=== PATIENT | male | born 1945 | race Caucasian/White ===

== ENCOUNTER 2017-01-24 14:04 | Inpatient (IN) | payer MEDICARE, OTHER ==
[2017-01-24] VITALS (7 sets, daily range): BP systolic 161–190; BP diastolic 72–83; PULSE 53–64; RESP 15–20; TEMP 98–98.4; O2SAT 98–99
[~2017-01-24] VITALS: Ht 182.9 cm; Wt 64.1 kg
[~2017-01-24 14:04] MED LIST: ARIC10TA PO; CIPR0.3S2 RIGHT EYE; DILA100C PO; KETO1SOL3 EACH EYE; NU-I150C PO; PRED1%O LEFT EYE; PRED1%O RIGHT EYE; [UNRECOGNIZED DRUG - CODE] SC
[2017-01-24 14:47] LABS: AUTOMATED NEUTROPHIL # 10.7 TH/MM3 (1.8-7.7); BASOPHIL % 0.2 % (0.0-2.0); EOSINOPHIL # 0.2 TH/MM3 (0-0.4); EOSINOPHIL % 1.8 % (0.0-4.0); HEMATOCRIT 29.1 % (39.0-51.0); HEMO FLAGS DIFF FINAL; LYMPH % 7.4 % (9.0-44.0); LYMPHOCYTE # 0.9 TH/MM3 (1.0-4.8); MEAN CELL VOLUME 96.1 FL (80.0-100.0); MEAN CORPUSCULAR HEMOGLOBIN 32.7 PG (27.0-34.0); MEAN CORPUSCULAR HGB CONC 34.1 % (32.0-36.0); MONO % 6.6 % (0.0-8.0); PLATELET COUNT 326 TH/MM3 (150-450); RED BLOOD COUNT 3.03 MIL/MM3 (4.50-5.90); RED CELL DISTRIBUTION WIDTH 15.2 % (11.6-17.2); WHITE BLOOD COUNT 12.7 TH/MM3 (4.0-11.0)
[2017-01-24 14:56] LABS: APTT (PATIENT) 33.1 SEC (24.3-30.1); PROTHROMBIN TIME - PATIENT 10.7 SEC (9.8-11.6)
--- NOTE | 2017-01-24 15:10 | RADRPT ---
EXAM DATE/TIME: 01/24/2017 14:56 [facility] COMPARISON: No previous studies available for comparison. INDICATIONS : Left foot pain, no trauma. MEDICAL HISTORY : Hypertension. Smoker. SURGICAL HISTORY : None. ENCOUNTER: Initial ACUITY: 2 days PAIN SCORE: 10/10 LOCATION: Left foot. FINDINGS: There is diffuse osteopenia. No evidence of fracture, dislocation or bony destruction. Mild arthritic change in the interphalangeal joints and first MTP joint. Small plantar heel spur noted. CONCLUSION: No acute bony findings Eric Lopez MD on January 24, 2017 at 15:07 Board Certified Radiologist. This report was verified electronically.
[2017-01-24 15:21] LABS: ALT (GPT) 26 U/L (12-78); ANION GAP 10 MEQ/L (5-15); AST (GOT) 27 U/L (15-37); BICARBONATE 23.7 MEQ/L (21.0-32.0); BLOOD UREA NITROGEN 46 MG/DL (7-18); CHLORIDE 108 MEQ/L (98-107); GLOMERULAR FILTRATION RATE 23 ML/MIN (>89); POTASSIUM 3.9 MEQ/L (3.5-5.1); SODIUM (NA) 142 MEQ/L (136-145)
[2017-01-24 15:23] LABS: ALKALINE PHOSPHATASE 212 U/L (45-117); TOTAL BILIRUBIN ADULT 0.3 MG/DL (0.2-1.0)
--- NOTE | 2017-01-24 15:40 | RADRPT ---
EXAM DATE/TIME: 01/24/2017 14:52 [facility] COMPARISON: CHEST SINGLE AP, June 05, 2013, 14:22. INDICATIONS : Cough. MEDICAL HISTORY : Hypertension. Smoker. SURGICAL HISTORY : None. ENCOUNTER: Initial ACUITY: 1 day PAIN SCORE: 0/10 LOCATION: Bilateral chest FINDINGS: A single view of the chest demonstrates the lungs to be symmetrically aerated without evidence of mas s, infiltrate or effusion. The cardiomediastinal contours are unremarkable. Osseous structures are intact. CONCLUSION: No acute disease. Eric Lopez MD on January 24, 2017 at 15:38 Board Certified Radiologist. This report was verified electronically.
[2017-01-24] MEDS ORDERED: [UNRECOGNIZED DRUG - CODE] SQ (16:41)
[2017-01-24] MEDS ORDERED: ASPI325T PO (16:45)
[2017-01-24] MEDS ORDERED: POLY0.052 EACH EYE (16:45)
[2017-01-24] MEDS ORDERED: DONE10TA7 PO (16:45)
[2017-01-24] MEDS ORDERED: FLUT1INH INH (16:45)
[2017-01-24] MEDS ORDERED: DILA100C PO (16:57)
[2017-01-24] MEDS ORDERED: ROCA0.5C PO (16:57)
[2017-01-24] MEDS ORDERED: FLUT1SPR5 EACH NARE (16:57)
[2017-01-24] MEDS ORDERED: LORA10TA PO (16:57)
[2017-01-24] MEDS ORDERED: NU-IRON PO (16:57)
[2017-01-24] MEDS ORDERED: VENTAER INH (16:57)
[2017-01-24] MEDS ORDERED: LABE100T2 PO (16:57)
[2017-01-24] MEDS ORDERED: SODI650T PO (16:57)
[2017-01-24] MEDS ORDERED: MAPA325T PO (16:57)
[2017-01-24] MEDS ORDERED: THERTAB17 PO (16:57)
[2017-01-24] MEDS ORDERED: AMLO10 PO (16:57)
--- NOTE | 2017-01-24 17:08 | PD ---
HPI Chief Complaint: Skin Problem Time Seen by Provider: 14:16 Travel History International Travel<30 days: No Contact w/Intl Traveler<30days: No Traveled to known affect area: No History of Present Illness HPI This is a 71-year-old male with a history of peripheral vascular disease, COPD, previous alcoholism, seizure disorder, who [facility] with evidence of an ischemic left foot. The patient's had previous BKA of the right lower extremity. He's also had a aorta femoral graft of the left lower extremity. He reports that 2 weeks ago he started experiencing pain in his left foot. He states that at that time they did ordered a Doppler of his left lower extremity. He states it wasn't done for 3 days because of the holiday. He reports that the foot has progressively gotten more red and now there are black toes including his great toe and second toe. There is no reported fevers , chills. There are no other complaints at time of my examination. PFSH Past Medical History Arthritis: Yes (FINGERS) Asthma: No Atrial Fibrillation: Yes Autoimmune Disease: No Blood Disorders: No Heart Rhythm Problems: No Cancer: No Cardiovascular Problems: Yes (ATR. FIB, PVD) High Cholesterol: No Chemotherapy: No Chest Pain: No Congestive Heart Failure: No COPD: Yes Cerebrovascular Accident: Yes Diabetes: No Diminished Hearing: No Endocrine: No Gastrointestinal Disorders: Yes (GERD, HX ESOPHAGITIS) GERD: No Genitourinary: No Headaches: No Hepatitis: No Hiatal Hernia: No Hypertension: Yes Immune Disorder: No Kidney Stones: No Medical other: Yes (HX DRUG/ ETOH ABUSE, HYPERCALCEMIA, ANEMIA) Musculoskeletal: Yes (GENERALIZED WEAKNES, ARTHRITIS, BK AMP) Neurologic: Yes (TIA'S, SEIZURES ) Psychiatric: Yes (SENILE DEMENTIA, PSYCHOSIS, DEPRESSION) Reproductive: No Respiratory: Yes (COPD) Myocardial Infarction: No Radiation Therapy: No Renal Failure: Yes Seizures: Yes Sickle Cell Disease: No Sleep Apnea: No Thyroid Disease: No Ulcer: No Past Surgical History Abdominal Surgery: No AICD: No Cardiac Surgery: No Ear Surgery: No Endocrine Surgery: No Eye Surgery: No Genitourinary Surgery: No Gynecologic Surgery: No Joint Replacement: No Neurologic Surgery: Yes Oral Surgery: No Pacemaker: No Thoracic Surgery: No Other Surgery: Yes (L FEM/POP) Social History Alcohol Use: No (QUIT 42 YEARS AGO) Tobacco Use: Yes (STATES 1PPD) Substance Use: Yes (HX OF ETOH/ DRUG ABUSE) Allergies-Medications (Allergen,Severity, Reaction): Coded Allergies: *MDRO Multi-Drug Resistant Organism (Verified Allergy, Unknown, 01/24/17) Acinetobacter baumannii MDR Reported Meds & Prescriptions Reported Meds & Active Scripts Active Reported Ventolin Hfa 18 GM Inh (Albuterol Sulfate) 90 Mcg/Act Aer 2 Puff INH Q8HR PRN Mapap (Acetaminophen) 325 Mg Tab 650 Mg PO Q4HR PRN Sodium Bicarbonate 650 Mg Tab 650 Mg PO BID Rocaltrol (Calcitriol) 0.5 Mcg Cap 0.5 Mcg PO DAILY Poly-Iron 150 (Polysaccharide Iron Complex) 150 Mg Cap 150 Mg PO TID Norvasc (Amlodipine Besylate) 10 Mg Tab 10 Mg PO DAILY Thera-M (Multiple Vitamins W/ Minerals) 1 Tab 1 Tab PO DAILY Labetalol (Labetalol HCl) 100 Mg Tab 50 Mg PO BID Flonase Nasal [place] (Fluticasone Nasal [place]) 50 Mcg/Act [place] 2 [place] EACH NARE DAILY Dilantin (Phenytoin Extended) 100 Mg Cap 200 Mg PO BID Loratadine 10 Mg Tab 10 Mg PO DAILY Breo Ellipta Inh (Fluticasone/Vilanterol) 100-25 Mcg/Act Inh 2 Puff INH DAILY Use daily at the same time. Aspirin 325 Mg Tab 325 Mg PO DAILY Polyvinyl Alcohol Opth (Polyvinyl Alcohol) 1.4% Soln 1 Drop EACH EYE DAILY PRN Donepezil 10 Mg Tab 10 Mg PO HS Aranesp (Albumin Free) Inj (Darbepoetin Gelacio Inj) 60 Mcg/0.3 Ml Inj 30 Mcg SQ MONTHLY ON THE Review of Systems Except as stated in HPI: all other systems reviewed are Neg General / Constitutional: No: Fever HENT: No: Headaches, Lightheadedness, Neck Pain Cardiovascular: No: Chest Pain or Discomfort Respiratory: Positive: Cough (nonproductive), Wheezing (chronic), No: Shortness of Breath Gastrointestinal: Positive: Nausea, Vomiting, Abdominal Pain Musculoskeletal: Positive: Myalgias, Arthralgias, Edema (left foot), Pain ( left foot pain, redness and scaling.) Skin: Positive Lesions (of left foot including blackening of the left great toe and second toe.) Neurologic: No: Weakness, Dizziness, Headache, Change in Mentation Endocrine: No: Polyuria, Polydipsia Physical Exam Narrative GENERAL: Well-developed well-nourished gentleman in no acute respiratory distress. SKIN: Focused skin assessment warm/dry. HEAD: Atraumatic. Normocephalic. EYES: No scleral icterus. No injection or drainage. ENT: Mucous membranes pink and moist. NECK: Trachea midline. No JVD. Supple. CARDIOVASCULAR: Regular rate and rhythm. No murmur appreciated. RESPIRATORY: No accessory muscle use. Fine wheezing heard at the bilateral bases. No Rales appreciated. GASTROINTESTINAL: Abdomen soft, non-tender, nondistended. MUSCULOSKELETAL: Previous right BKA. Left lower extremity shows erythema and blistering of his left foot. There is gangrenous black coloration to his left great toe and left second toe. There are no palpable dorsalis pedis pulses. There are no palpable or dopplerable dorsalis pedis or posterior tibial pulses. NEUROLOGICAL: Awake and alert. No obvious cranial nerve deficits. Normal speech. Data Data Last Documented VS Vital Signs Date Time Temp Pulse Resp B/P Pulse Ox O2 Delivery O2 Flow Rate FiO2 01/24/17 18:25 53 16 182/77 99 Room Air 01/24/17 14:32 98.4 Orders Complete Blood Count With Diff (01/24/17 14:32) Comprehensive Metabolic Panel (01/24/17 14:32) Prothrombin Time / Inr (Pt) (01/24/17 14:32) Act Partial Throm Time (Ptt) (01/24/17 14:32) Blood Culture (01/24/17 14:32) Urinalysis - C+S If Indicated (01/24/17 14:32) Chest, Single Ap (01/24/17 14:32) Iv Access Insert/Monitor (01/24/17 14:32) Ecg Monitoring (01/24/17 14:32) Oximetry (01/24/17 14:32) Foot, Limited (2vws) (01/24/17 14:32) Diet Heart Healthy (01/24/17 Dinner) Vital Signs (Adult) JAKE.Q4H (01/24/17 17:27) Consult Vascular Surgery (01/24/17 ) Amlodipine (Norvasc) (01/25/17 09:00) Donepezil (Aricept) (01/24/17 21:00) Fluticason-Vilanter 100-25 Inh (Breo Ell (01/25/17 09:00) Labetalol (Trandate) (01/24/17 21:00) Loratadine (Claritin) (01/25/17 09:00) Multivitamins-Minerals Therap (Theragran (01/25/17 09:00) Phenytoin (Dilantin) (01/24/17 21:00) Polysaccharide Iron Complex (Nu-Iron) (01/24/17 18:00) Artificial Tears Opth Soln (Tears Natura (01/24/17 17:30) Sodium Bicarbonate (Sodium Bicarbonate) (01/24/17 21:00) Calcitriol (Rocaltrol) (01/25/17 09:00) Pill Splitter (Pill Splitter) (01/24/17 17:45) Albuterol Hfa Inh (Ventolin Hfa Inh) (01/24/17 17:45) Acetaminophen (Tylenol) (01/24/17 17:30) Acetamin-Hydrocod 325-5 Mg ([place] 5-325 (01/24/17 17:30) Ondansetron Inj (Zofran Inj) (01/24/17 17:30) (Hub Use Only)Inp Phy Cons/Ref (01/24/17 ) Admit Order (Ed Use Only) (01/24/17 18:24) Labs Laboratory Tests Test 01/24/17 14:35 White Blood Count 12.7 TH/MM3 Red Blood Count 3.03 MIL/MM3 Hemoglobin 9.9 GM/DL Hematocrit 29.1 % Mean Corpuscular Volume 96.1 FL Mean Corpuscular Hemoglobin 32.7 PG Mean Corpuscular Hemoglobin 34.1 % Concent Red Cell Distribution Width 15.2 % Platelet Count 326 TH/MM3 Mean Platelet Volume 7.6 FL Neutrophils (%) (Auto) 84.0 % Lymphocytes (%) (Auto) 7.4 % Monocytes (%) (Auto) 6.6 % Eosinophils (%) (Auto) 1.8 % Basophils (%) (Auto) 0.2 % Neutrophils # (Auto) 10.7 TH/MM3 Lymphocytes # (Auto) 0.9 TH/MM3 Monocytes # (Auto) 0.8 TH/MM3 Eosinophils # (Auto) 0.2 TH/MM3 Basophils # (Auto) 0.0 TH/MM3 CBC Comment DIFF FINAL Differential Comment Prothrombin Time 10.7 SEC Prothromb Time International 1.0 RATIO Ratio Activated Partial 33.1 SEC Thromboplast Time Sodium Level 142 MEQ/L Potassium Level 3.9 MEQ/L Chloride Level 108 MEQ/L Carbon Dioxide Level 23.7 MEQ/L Anion Gap 10 MEQ/L Blood Urea Nitrogen 46 MG/DL Creatinine 2.71 MG/DL Estimat Glomerular Filtration 23 ML/MIN Rate Random Glucose 131 MG/DL Calcium Level 9.5 MG/DL Total Bilirubin 0.3 MG/DL Aspartate Amino Transf 27 U/L (AST/SGOT) Alanine Aminotransferase 26 U/L (ALT/SGPT) Alkaline Phosphatase 212 U/L Total Protein 7.8 GM/DL Albumin 2.6 GM/DL [facility] Medical Decision Making Medical Screen Exam Complete: Yes Emergency Medical Condition: Yes Differential Diagnosis Severe peripheral rash or disease with gangrenous left foot. Versus osteomyelitis versus cellulitis Narrative Course 71-year-old gentleman with history of peripheral vascular disease, COPD, tobacco abuse, who presents with left lower extremity ischemic foot. The patient has had several weeks of chronic ischemia of the left lower extremity. He is guarding had previous aortofemoral bypass of the left lower extremity. The patient be admitted to the [facility] hospitalist service. They'll be a vascular consult. He currently has elevated BUN/creatinine and therefore is not a candidate for a CT angiogram with runoff. Diagnosis Primary Impression: Gangrene of left foot Additional Impressions: Peripheral vascular disease of extremity COPD (chronic obstructive pulmonary disease) Tobacco abuse Admitting Information Admitting Physician Requests: Admit Stoney Bourgeois MD January 24, 2017 17:08
[2017-01-24] MEDS ORDERED: ACETAMINOPHEN/HYDROcodone 325 MG/5 MG TAB PO PRN (17:30)
[2017-01-24] MEDS ORDERED: ACETAMINOPHEN 325 MG TAB PO PRN (17:30)
[2017-01-24] MEDS ORDERED: ONDANSETRON HCL 4 MG/2 ML VIAL IV PUSH PRN (17:30)
[2017-01-24] MEDS ORDERED: ARTIFICIAL TEARS OPTH SOLN 15 ML BTL EACH EYE PRN (17:30)
--- NOTE | 2017-01-24 17:41 | HHI.HP ---
[facility] Wilber Lemus MD Admission Diagnosis gangrene left foot Diagnoses: (1) Gangrene of left foot Diagnosis: Principal Chief Complaint: gangrene of the left foot Travel History International Travel<30 Days: No Contact w/Intl Traveler <30 Da: No Traveled to Known Affected Are: No History of Present Illness patient is a 71 y/o male with history of PVD- s/p right BKA and left femoropopliteal bypass, chronic renal insufficiency, COPD, seizure disorder , who was [facility] ER [facility] because of the gangrene of the left foot. he says that it's been going on for a month. the left foot is with some erythema with black discoloration of the left great toe. he says that he had mild to moderate pain to the site. there's no report of fever. Review of Systems Constitutional: DENIES: Fever, Weight loss, Chills, Night Sweats Eyes: DENIES: Blurred vision, Diplopia, Vision loss, Double Vision Ears, nose, mouth, throat: DENIES: Tinnitus, Vertigo, Throat pain, Epistaxis Respiratory: DENIES: Apneas, Cough, Snoring, Wheezing, Hemoptysis, Sputum production, Shortness of breath Cardiovascular: DENIES: Chest pain, Palpitations, Syncope, Dyspnea on Exertion , PND, Lower Extremity Edema, Orthopnea, Claudication Gastrointestinal: DENIES: Abdominal pain, Black stools, Bloody stools, Constipation, Diarrhea, Nausea, Vomiting, Difficulty Swallowing, Anorexia Genitourinary: DENIES: Urinary frequency, Urgency, Hematuria, Dysuria Musculoskeletal: COMPLAINS OF: Joint pain (left foot), DENIES: Muscle aches, Stiffness, Joint Swelling Integumentary: DENIES: Rash Neurologic: DENIES: Abnormal gait, Headache, Localized weakness, Paresthesias, Seizures, Speech Problems, Tremor, Poor Balance Psychiatric: DENIES: Anxiety, Confusion, Mood changes, Depression, Hallucinations, Agitation, Suicidal Ideation, Homicidal Ideation, Delusions Past Family Social History Past Medical History PVD COPD chronic renal insufficiency seizure disorder Past Surgical History right BKA left femoropopliteal bypass Reported Medications Ventolin Hfa 18 GM Inh (Albuterol Sulfate) 90 Mcg/Act Aer 2 Puff INH Q8HR PRN Mapap (Acetaminophen) 325 Mg Tab 650 Mg PO Q4HR PRN Sodium Bicarbonate 650 Mg Tab 650 Mg PO BID Rocaltrol (Calcitriol) 0.5 Mcg Cap 0.5 Mcg PO DAILY Poly-Iron 150 (Polysaccharide Iron Complex) 150 Mg Cap 150 Mg PO TID Norvasc (Amlodipine Besylate) 10 Mg Tab 10 Mg PO DAILY Thera-M (Multiple Vitamins W/ Minerals) 1 Tab 1 Tab PO DAILY Labetalol (Labetalol HCl) 100 Mg Tab 50 Mg PO BID Flonase Nasal [place] (Fluticasone Nasal [place]) 50 Mcg/Act [place] 2 [place] EACH NARE DAILY Dilantin (Phenytoin Extended) 100 Mg Cap 200 Mg PO BID Loratadine 10 Mg Tab 10 Mg PO DAILY Breo Ellipta Inh (Fluticasone/Vilanterol) 100-25 Mcg/Act Inh 2 Puff INH DAILY Use daily at the same time. Aspirin 325 Mg Tab 325 Mg PO DAILY Polyvinyl Alcohol Opth (Polyvinyl Alcohol) 1.4% Soln 1 Drop EACH EYE DAILY PRN Donepezil 10 Mg Tab 10 Mg PO HS Aranesp (Albumin Free) Inj (Darbepoetin Gelacio Inj) 60 Mcg/0.3 Ml Inj 30 Mcg SQ MONTHLY ON THE Allergies: Coded Allergies: *MDRO Multi-Drug Resistant Organism (Verified Allergy, Unknown, 01/24/17) Acinetobacter baumannii MDR Social History smokes a pack in two days.prison resident. Physical Exam Vital Signs Vital Signs Date Time Temp Pulse Resp B/P Pulse Ox O2 Delivery O2 Flow Rate FiO2 01/24/17 14:40 64 15 98 Room Air 01/24/17 14:40 64 01/24/17 14:32 98.4 62 16 187/82 98 Physical Exam GENERAL: This is a well-nourished, well-developed patient, in no apparent distress. SKIN: erythema over the left foot with gangrene of the left great toe HEAD: Atraumatic. Normocephalic. No temporal or scalp tenderness. EYES: Pupils equal round and reactive. Extraocular motions intact. No scleral icterus. No injection or drainage. ENT: Nose without bleeding, purulent drainage or septal hematoma. Throat without erythema, tonsillar hypertrophy or exudate. Uvula midline. Airway patent. NECK: Trachea midline. No JVD or lymphadenopathy. Supple, nontender, no meningeal signs. CARDIOVASCULAR: Regular rate and rhythm without murmurs, gallops, or rubs. RESPIRATORY: Clear to auscultation. Breath sounds equal bilaterally. No wheezes , rales, or rhonchi. GASTROINTESTINAL: Abdomen soft, non-tender, nondistended. No hepato-splenomegaly , or palpable masses. No guarding. MUSCULOSKELETAL: s/p right BKA NEUROLOGICAL: Awake and alert. Cranial nerves II through XII intact. Motor and sensory grossly within normal limits. Five out of 5 muscle strength in all muscle groups. Normal speech. Laboratory Laboratory Tests Test 01/24/17 14:35 White Blood Count 12.7 Red Blood Count 3.03 Hemoglobin 9.9 Hematocrit 29.1 Mean Corpuscular Volume 96.1 Mean Corpuscular Hemoglobin 32.7 Mean Corpuscular Hemoglobin 34.1 Concent Red Cell Distribution Width 15.2 Platelet Count 326 Mean Platelet Volume 7.6 Neutrophils (%) (Auto) 84.0 Lymphocytes (%) (Auto) 7.4 Monocytes (%) (Auto) 6.6 Eosinophils (%) (Auto) 1.8 Basophils (%) (Auto) 0.2 Neutrophils # (Auto) 10.7 Lymphocytes # (Auto) 0.9 Monocytes # (Auto) 0.8 Eosinophils # (Auto) 0.2 Basophils # (Auto) 0.0 CBC Comment DIFF FINAL Differential Comment Prothrombin Time 10.7 Prothromb Time International 1.0 Ratio Activated Partial 33.1 Thromboplast Time Sodium Level 142 Potassium Level 3.9 Chloride Level 108 Carbon Dioxide Level 23.7 Anion Gap 10 Blood Urea Nitrogen 46 Creatinine 2.71 Estimat Glomerular Filtration 23 Rate Random Glucose 131 Calcium Level 9.5 Total Bilirubin 0.3 Aspartate Amino Transf 27 (AST/SGOT) Alanine Aminotransferase 26 (ALT/SGPT) Alkaline Phosphatase 212 Total Protein 7.8 Albumin 2.6 Date/Time Procedure Status Source Growth 01/24/17 14:35 Aerobic Blood Culture Received Blood Peripheral Pending 01/24/17 14:35 Anaerobic Blood Culture Received Blood Peripheral Pending Result Diagram: 01/24/17 1435 01/24/17 1435 Imaging Last Impressions Foot X-Ray 5/5/17 1432 Signed Impressions: Service Date/Time: Tuesday, January 24, 2017 14:56 - CONCLUSION: No acute bony findings Eric Lopez MD Chest X-Ray 01/24/17 1432 Signed Impressions: Service Date/Time: Tuesday, January 24, 2017 14:52 - CONCLUSION: No acute disease. Eric Lopez MD Assessment and Plan Assessment and Plan A/P - gangrene of the left foot will consult vascular surgery- continue pain control -chronic renal insufficiency; st his baseline- will monitor the renal function -COPD with no exacerbation/ seizure disorder; resume home meds -anemia- due to chronic disease- will monitor Discussed Condition With ER physician and the patient. Physician Certification 2 Midnight Certification Type: Admission for Inpatient Services Order for Inpatient Services The services are ordered in accordance with Medicare regulations or non- Medicare payer requirements, as applicable. In the case of services not specified as inpatient-only, they are appropriately provided as inpatient services in accordance with the 2-midnight benchmark. Estimated LOS (days): 3 days is the estimated time the patient will need to remain in the hospital, assuming treatment plan goals are met and no additional complications. Post-Hospital Plan: Not yet determined Karen Mahan MD January 24, 2017 17:41
[2017-01-24] MEDS ORDERED: PILL SPLITTER OTHER PRN (17:45)
[2017-01-24] MEDS ORDERED: ALBUTEROL SULFATE 90 MCG/ACT HFA 18 GM INHALER INH PRN (17:45)
[2017-01-24] MEDS: POLYSACCHARIDE IRON COMPLEX 150 MG CAP PO SCH (18:45)
[2017-01-24] MEDS: cloNIDine HCL 0.1 MG TAB PO PRN (18:45)
[2017-01-24 19:26] LABS: BACTERIA, URINE MANY /hpf; BLOOD, URINE SMALL (NEG); COMMENT (UR) CULTURE INDICATED; CULTURE IF INDICATED CULTURE INDICATED; GLUCOSE,URINE NEG (NEG); GRANULAR CAST, URINE 5 /lpf; KETONE, URINE NEG (NEG); MUCUS URINE FEW /lpf (OCC); NITRITE,URINE NEG (NEG); PH, URINE 5.5 (5.0-8.5); SQUAMOUS EPITHELIAL CELL URINE 1 /hpf (0-5); URINE COLOR YELLOW (YELLW/STRAW)
[2017-01-24] MEDS: LABETALOL HCL 100 MG TAB PO SCH (21:00)
[2017-01-24] MEDS: DONEPEZIL HCL 5 MG TAB PO SCH (22:15)
[2017-01-24] MEDS: PHENYTOIN SODIUM 100 MG CAP PO SCH (22:15)
[2017-01-24] MEDS: SODIUM BICARBONATE 650 MG TAB PO SCH (22:15)
[2017-01-25] VITALS (7 sets, daily range): BP systolic 150–195; BP diastolic 62–91; PULSE 53–73; RESP 16–20; TEMP 97.6–98.9; O2SAT 96–98
[2017-01-25] MEDS: SODIUM BICARBONATE 650 MG TAB PO SCH ×2 (08:03→20:11)
[2017-01-25] MEDS: CALCITRIOL 0.25 MCG CAP PO SCH (08:03)
[2017-01-25] MEDS: MULTIVITAMINS/MINERALS THERAPEUTIC TAB PO SCH (08:03)
[2017-01-25] MEDS: LORATADINE 10 MG TAB PO SCH (08:03)
[2017-01-25] MEDS: LABETALOL HCL 100 MG TAB PO SCH ×2 (08:03→20:11)
[2017-01-25] MEDS: POLYSACCHARIDE IRON COMPLEX 150 MG CAP PO SCH ×3 (08:03→17:31)
[2017-01-25] MEDS: FLUTICASONE 100 MCG/VILANTEROL 25 MCG INHALER INH SCH (08:05)
[2017-01-25] MEDS: PHENYTOIN SODIUM 100 MG CAP PO SCH ×2 (09:12→20:11)
--- NOTE | 2017-01-25 11:23 | PD.VS.PN ---
Subjective Subjective/Hospital Course Introduced myself to patient and patient noted that he wanted to see Dr. Espinosa. Known hx of vascular procedures per the patient. Please cancel consult and place consult for Dr. Espinosa. Objective Vitals/I&O Date Time Temp Pulse Resp B/P Pulse Ox O2 Delivery O2 Flow Rate FiO2 01/25/17 08:13 63 01/25/17 08:13 Room Air 01/25/17 08:00 98.5 63 20 155/70 98 01/25/17 04:04 Room Air 01/25/17 04:00 98.9 53 18 150/62 96 01/25/17 00:00 Room Air 01/25/17 00:00 98.6 57 18 170/68 98 01/24/17 21:31 170/72 01/24/17 21:15 63 01/24/17 20:45 98.0 55 20 190/83 99 01/24/17 19:11 63 17 01/24/17 19:09 56 17 161/72 99 Room Air 01/24/17 18:25 53 16 182/77 99 Room Air 01/24/17 14:40 64 15 98 Room Air 01/24/17 14:40 64 01/24/17 14:32 98.4 62 16 187/82 98 Laboratory Laboratory Tests Test 01/24/17 01/24/17 14:35 18:45 White Blood Count 12.7 Red Blood Count 3.03 Hemoglobin 9.9 Hematocrit 29.1 Mean Corpuscular Volume 96.1 Mean Corpuscular Hemoglobin 32.7 Mean Corpuscular Hemoglobin 34.1 Concent Red Cell Distribution Width 15.2 Platelet Count 326 Mean Platelet Volume 7.6 Neutrophils (%) (Auto) 84.0 Lymphocytes (%) (Auto) 7.4 Monocytes (%) (Auto) 6.6 Eosinophils (%) (Auto) 1.8 Basophils (%) (Auto) 0.2 Neutrophils # (Auto) 10.7 Lymphocytes # (Auto) 0.9 Monocytes # (Auto) 0.8 Eosinophils # (Auto) 0.2 Basophils # (Auto) 0.0 CBC Comment DIFF FINAL Differential Comment Prothrombin Time 10.7 Prothromb Time International 1.0 Ratio Activated Partial 33.1 Thromboplast Time Sodium Level 142 Potassium Level 3.9 Chloride Level 108 Carbon Dioxide Level 23.7 Anion Gap 10 Blood Urea Nitrogen 46 Creatinine 2.71 Estimat Glomerular Filtration 23 Rate Random Glucose 131 Calcium Level 9.5 Total Bilirubin 0.3 Aspartate Amino Transf 27 (AST/SGOT) Alanine Aminotransferase 26 (ALT/SGPT) Alkaline Phosphatase 212 Total Protein 7.8 Albumin 2.6 Urine Color YELLOW Urine Turbidity HAZY Urine pH 5.5 Urine Specific [place] 1.016 Urine Protein 100 Urine Glucose (UA) NEG Urine Ketones NEG Urine Occult Blood SMALL Urine Nitrite NEG Urine Bilirubin NEG Urine Urobilinogen LESS THAN 2.0 Urine Leukocyte Esterase MOD Urine WBC 4 Urine Squamous Epithelial 1 Cells Urine Amorphous Sediment RARE Urine Bacteria MANY Urine Granular Casts 5 Urine Mucus FEW Microscopic Urinalysis Comment CULTURE INDICATED Date/Time Procedure Status Source Growth 01/24/17 18:45 Urine Culture Received Urine Clean Catch Pending 01/24/17 14:35 Aerobic Blood Culture - Preliminary Resulted Blood Peripheral NO GROWTH IN 1 DAY 01/24/17 14:35 Anaerobic Blood Culture - Preliminary Resulted Blood Peripheral NO GROWTH IN 1 DAY Imaging Last 48 hours Impressions Foot X-Ray 01/24/17 1432 Signed Impressions: Service Date/Time: Tuesday, January 24, 2017 14:56 - CONCLUSION: No acute bony findings Eric Lopez MD Chest X-Ray 01/24/17 1432 Signed Impressions: Service Date/Time: Tuesday, January 24, 2017 14:52 - CONCLUSION: No acute disease. MD Lindsey Barajas Ryan V. DO January 25, 2017 11:23
--- NOTE | 2017-01-25 11:37 | HHI.PR ---
Subjective Remarks in no acute distress. pain is fairly controlled. d/w the RN. Objective Vitals Vital Signs Date Time Temp Pulse Resp B/P Pulse Ox O2 Delivery O2 Flow Rate FiO2 01/25/17 08:13 63 01/25/17 08:13 Room Air 01/25/17 08:00 98.5 63 20 155/70 98 01/25/17 04:04 Room Air 01/25/17 04:00 98.9 53 18 150/62 96 01/25/17 00:00 Room Air 01/25/17 00:00 98.6 57 18 170/68 98 01/24/17 21:31 170/72 01/24/17 21:15 63 01/24/17 20:45 98.0 55 20 190/83 99 01/24/17 19:11 63 17 01/24/17 19:09 56 17 161/72 99 Room Air 01/24/17 18:25 53 16 182/77 99 Room Air 01/24/17 14:40 64 15 98 Room Air 01/24/17 14:40 64 01/24/17 14:32 98.4 62 16 187/82 98 I/O 01/24/17 01/24/17 01/24/17 01/25/17 01/25/17 01/25/17 07:00 15:00 23:00 07:00 15:00 23:00 Intake Total 480 ml Output Total 300 ml Balance 180 ml Intake Oral 480 ml Output Urine Total 300 ml # Bowel Movements 0 Result Diagram: 01/24/17 1435 01/24/17 1435 Imaging Last Impressions Foot X-Ray 01/24/17 1432 Signed Impressions: Service Date/Time: Tuesday, January 24, 2017 14:56 - CONCLUSION: No acute bony findings Eric Lopez MD Chest X-Ray 01/24/17 1432 Signed Impressions: Service Date/Time: Tuesday, January 24, 2017 14:52 - CONCLUSION: No acute disease. Eric Lopez MD Objective Remarks GENERAL: This is a well-nourished, well-developed patient, in no apparent distress. CARDIOVASCULAR: Regular rate and regular rhythm without murmurs, gallops, or rubs. RESPIRATORY: Clear to auscultation. Breath sounds equal bilaterally. No wheezes , rales, or rhonchi. GASTROINTESTINAL: Abdomen soft, non-tender, nondistended. Normal, active bowel sounds MUSCULOSKELETAL:s/p right BKA- left foot gangrene NEURO: Alert & Oriented x4 to person, place, time, situation. Moves all ext x4 Procedures none Medications and IVs Current Medications Albuterol Sulfate (Ventolin Hfa Inh) 2 puff Q8HR PRN INH SOB/WHEEZING; Start at 17:45 Amlodipine Besylate (Norvasc) 10 mg DAILY PO Last administered on 01/25/17 08: 03; Start 01/25/17 at 09:00 Donepezil HCl (Aricept) 10 mg HS PO Last administered on 01/24/17 22:15; Start 01/24/17 at 21:00 Fluticasone/ Vilanterol (Breo Ellipta 100-25 Inh) 2 puff DAILY INH Last administered on 01/25/17 08:05; Start 01/25/17 at 09:00 Labetalol HCl (Trandate) 50 mg BID PO Last administered on 01/25/17 08:03; Start 01/24/17 at 21:00 Loratadine (Claritin) 10 mg DAILY PO Last administered on 01/25/17 08:03; Start 01/25/17 at 09:00 Multivitamins/ Minerals Therapeutic (Theragran M Tab) 1 tab DAILY PO Last administered on 01/25/17 08:03; Start 01/25/17 at 09:00 Phenytoin (Dilantin) 200 mg BID PO Last administered on 01/25/17 09:12; Start 01/24/17 at 21:00 Polysaccharide Iron Complex (Nu-Iron) 150 mg TID PO Last administered on 08:03; Start 01/24/17 at 18:00 Artificial Tears (Tears Naturale Opth Soln) 1 drop DAILY PRN EACH EYE IRRITATION OF FOREIGN BODY; Start 01/24/17 at 17:30 Sodium Bicarbonate (Sodium Bicarbonate) 650 mg BID PO Last administered on 08:03; Start 01/24/17 at 21:00 Calcitriol (Rocaltrol) 0.5 mcg DAILY PO Last administered on 01/25/17 08:03; Start 01/25/17 at 09:00 Miscellaneous (Pill Splitter) 1 ea UNSCH PRN OTHER SEE LABEL COMMENTS; Start at 17:45 Acetaminophen (Tylenol) 650 mg Q4H PRN PO FEVER/HEADACHE/ PAIN <5; Start at 17:30 Acetaminophen/ Hydrocodone Bitart ([place] 5-325 Mg) 1 tab Q4H PRN PO PAIN >5; Start 01/24/17 at 17:30 Ondansetron HCl (Zofran Inj) 4 mg Q8HR PRN IV PUSH NAUSEA; Start 01/24/17 at 17: 30 Clonidine (Catapres) 0.1 mg Q8HR PRN PO SBP> OR = 180, DBP> OR = 100 Last administered on 01/24/17t 18:45; Start 01/24/17 at 18:45 A/P Assessment and Plan A/P - gangrene of the left foot consulted vascular surgery ( per patient's request)- continue pain control -hypertension; continue norvasc and labetalol- clonidine prn continue to monitor and adjust the regimen as needed. -chronic renal insufficiency; at his baseline- will monitor the renal function -COPD with no exacerbation/ seizure disorder; resumed home meds -anemia- due to chronic disease- will monitor Karen Mahan MD January 25, 2017 11:37
[2017-01-25] MEDS: cloNIDine HCL 0.1 MG TAB PO PRN ×2 (12:05→20:10)
[2017-01-25] MEDS: DONEPEZIL HCL 5 MG TAB PO SCH (20:10)
[2017-01-26] VITALS (7 sets, daily range): BP systolic 128–200; BP diastolic 60–87; PULSE 55–61; RESP 16–22; TEMP 98.1–98.6; O2SAT 95–99
[2017-01-26] MEDS: cloNIDine HCL 0.1 MG TAB PO PRN ×2 (04:53→13:42)
[2017-01-26] MEDS ORDERED: ACETAMINOPHEN/HYDROcodone 325 MG/5 MG TAB PO PRN (09:15)
--- NOTE | 2017-01-26 09:16 | HHI.PR ---
Subjective Remarks complaining of moderate pain to left foot. no fever. Objective Vitals Vital Signs Date Time Temp Pulse Resp B/P Pulse Ox O2 Delivery O2 Flow Rate FiO2 01/26/17 04:00 98.1 55 18 200/85 99 180/80 01/26/17 00:00 98.6 57 22 171/74 95 01/26/17 00:00 Room Air 01/25/17 20:00 Room Air 01/25/17 20:00 73 01/25/17 19:47 98.0 64 18 195/82 98 01/25/17 12:00 97.6 59 16 191/91 97 190/70 I/O 01/25/17 01/25/17 01/25/17 01/26/17 01/26/17 01/26/17 07:00 15:00 23:00 07:00 15:00 23:00 Intake Total 480 ml 240 ml 480 ml Output Total 300 ml 300 ml 550 ml Balance 180 ml -60 ml -70 ml Intake Oral 480 ml 240 ml 480 ml Output Urine Total 300 ml 300 ml 550 ml # Bowel Movements 0 Result Diagram: 01/24/17 1435 01/24/17 1435 Imaging Last Impressions Foot X-Ray 01/24/17 1432 Signed Impressions: Service Date/Time: Tuesday, January 24, 2017 14:56 - CONCLUSION: No acute bony findings Eric Lopez MD Chest X-Ray 01/24/17 1432 Signed Impressions: Service Date/Time: Tuesday, January 24, 2017 14:52 - CONCLUSION: No acute disease. Eric Lopez MD Objective Remarks GENERAL: This is a well-nourished, well-developed patient, in no apparent distress. CARDIOVASCULAR: Regular rate and regular rhythm without murmurs, gallops, or rubs. RESPIRATORY: Clear to auscultation. Breath sounds equal bilaterally. No wheezes , rales, or rhonchi. GASTROINTESTINAL: Abdomen soft, non-tender, nondistended. Normal, active bowel sounds MUSCULOSKELETAL:s/p right BKA- left foot gangrene NEURO: Alert & Oriented x4 to person, place, time, situation. Moves all ext x4 Procedures none Medications and IVs Current Medications Albuterol Sulfate (Ventolin Hfa Inh) 2 puff Q8HR PRN INH SOB/WHEEZING; Start at 17:45 Amlodipine Besylate (Norvasc) 10 mg DAILY PO Last administered on 01/25/17 08: 03; Start 01/25/17 at 09:00 Donepezil HCl (Aricept) 10 mg HS PO Last administered on 01/25/17 20:10; Start 01/24/17 at 21:00 Fluticasone/ Vilanterol (Breo Ellipta 100-25 Inh) 2 puff DAILY INH Last administered on 01/25/17 08:05; Start 01/25/17 at 09:00 Labetalol HCl (Trandate) 50 mg BID PO Last administered on 01/25/17 20:11; Start 01/24/17 at 21:00 Loratadine (Claritin) 10 mg DAILY PO Last administered on 01/25/17 08:03; Start 01/25/17 at 09:00 Multivitamins/ Minerals Therapeutic (Theragran M Tab) 1 tab DAILY PO Last administered on 01/25/17 08:03; Start 01/25/17 at 09:00 Phenytoin (Dilantin) 200 mg BID PO Last administered on 01/25/17 20:11; Start 01/24/17 at 21:00 Polysaccharide Iron Complex (Nu-Iron) 150 mg TID PO Last administered on 17:31; Start 01/24/17 at 18:00 Artificial Tears (Tears Naturale Opth Soln) 1 drop DAILY PRN EACH EYE IRRITATION OF FOREIGN BODY; Start 01/24/17 at 17:30 Sodium Bicarbonate (Sodium Bicarbonate) 650 mg BID PO Last administered on 20:11; Start 01/24/17 at 21:00 Calcitriol (Rocaltrol) 0.5 mcg DAILY PO Last administered on 01/25/17 08:03; Start 01/25/17 at 09:00 Miscellaneous (Pill Splitter) 1 ea UNSCH PRN OTHER SEE LABEL COMMENTS; Start at 17:45 Acetaminophen (Tylenol) 650 mg Q4H PRN PO FEVER/HEADACHE/ PAIN <5; Start at 17:30 Acetaminophen/ Hydrocodone Bitart ([place] 5-325 Mg) 1 tab Q4H PRN PO PAIN >5 Last administered on 01/26/17 06:30; Start 01/24/17 at 17:30 Ondansetron HCl (Zofran Inj) 4 mg Q8HR PRN IV PUSH NAUSEA; Start 01/24/17 at 17: 30 Clonidine (Catapres) 0.1 mg Q8HR PRN PO SBP> OR = 180, DBP> OR = 100 Last administered on 01/26/17 04:53; Start 01/24/17 at 18:45 A/P Assessment and Plan A/P - gangrene of the left foot consulted vascular surgery ( per patient's request)- continue pain control -hypertension; not well controlled- partly due to the pain-continue norvasc and labetalol- clonidine prn continue to monitor; will consider changing norvasc to procardia if BP doesn' t improve after the pain control. -UTI- start IV abx- will follow the UC. -chronic renal insufficiency; at his baseline- will monitor the renal function -COPD with no exacerbation/ seizure disorder; resumed home meds -anemia- due to chronic disease- will monitor Karen Mahan MD January 26, 2017 09:15
[2017-01-26] MEDS: POLYSACCHARIDE IRON COMPLEX 150 MG CAP PO SCH ×3 (09:19→18:00)
[2017-01-26] MEDS: LORATADINE 10 MG TAB PO SCH (09:19)
[2017-01-26] MEDS: PHENYTOIN SODIUM 100 MG CAP PO SCH ×2 (09:20→20:29)
[2017-01-26] MEDS: LABETALOL HCL 100 MG TAB PO SCH ×2 (09:20→20:30)
[2017-01-26] MEDS: CALCITRIOL 0.25 MCG CAP PO SCH (09:20)
[2017-01-26] MEDS: SODIUM BICARBONATE 650 MG TAB PO SCH ×2 (09:20→20:29)
[2017-01-26] MEDS: MULTIVITAMINS/MINERALS THERAPEUTIC TAB PO SCH (09:21)
[2017-01-26] MEDS: FLUTICASONE 100 MCG/VILANTEROL 25 MCG INHALER INH SCH (09:23)
[2017-01-26] MEDS: cefTRIAXone INJ 1,000 MG in SODIUM CHLORIDE 0.9% INJ 100 ML IV SCH (12:01)
[2017-01-26] MEDS: DONEPEZIL HCL 5 MG TAB PO SCH (20:29)
[2017-01-27] VITALS (7 sets, daily range): BP systolic 148–186; BP diastolic 58–103; PULSE 52–65; RESP 14–20; TEMP 97.2–99.4; O2SAT 97–100
[2017-01-27 07:15] LABS: BICARBONATE 21.1 MEQ/L (21.0-32.0); POTASSIUM 4.3 MEQ/L (3.5-5.1)
[2017-01-27 07:18] LABS: AUTOMATED NEUTROPHIL # 10.7 TH/MM3 (1.8-7.7); BASOPHIL % 0.3 % (0.0-2.0); EOSINOPHIL # 0.4 TH/MM3 (0-0.4); EOSINOPHIL % 2.8 % (0.0-4.0); HEMATOCRIT 29.5 % (39.0-51.0); HEMO FLAGS DIFF FINAL; LYMPH % 8.2 % (9.0-44.0); LYMPHOCYTE # 1.1 TH/MM3 (1.0-4.8); MEAN CELL VOLUME 98.1 FL (80.0-100.0); MEAN CORPUSCULAR HEMOGLOBIN 32.1 PG (27.0-34.0); MEAN CORPUSCULAR HGB CONC 32.8 % (32.0-36.0); MONO % 7.7 % (0.0-8.0); PLATELET COUNT 224 TH/MM3 (150-450); RED BLOOD COUNT 3.01 MIL/MM3 (4.50-5.90); RED CELL DISTRIBUTION WIDTH 15.3 % (11.6-17.2); WHITE BLOOD COUNT 13.2 TH/MM3 (4.0-11.0)
[2017-01-27] MEDS: MULTIVITAMINS/MINERALS THERAPEUTIC TAB PO SCH (09:00)
--- NOTE | 2017-01-27 09:57 | HHI.PR ---
Subjective Remarks resting comfortably with no distress. pain is controlled. no fever or other complaints. Objective Vitals Vital Signs Date Time Temp Pulse Resp B/P Pulse Ox O2 Delivery O2 Flow Rate FiO2 01/27/17 08:00 98.2 65 20 186/93 97 01/27/17 04:00 Room Air 01/27/17 04:00 99.4 65 16 162/70 99 01/27/17 00:00 Room Air 01/27/17 00:00 98.8 61 14 160/58 98 01/26/17 20:00 Room Air 01/26/17 20:00 98.2 61 16 164/60 98 01/26/17 20:00 59 01/26/17 16:02 98.3 56 18 164/87 99 01/26/17 12:01 98.1 56 18 128/83 97 I/O 01/26/17 01/26/17 01/26/17 01/27/17 01/27/17 01/27/17 06:59 14:59 22:59 06:59 14:59 22:59 Intake Total 480 ml 360 ml 480 ml 240 ml Output Total 550 ml 800 ml 125 ml 600 ml Balance -70 ml -440 ml 355 ml -360 ml Intake Oral 480 ml 360 ml 480 ml 240 ml Output Urine Total 550 ml 800 ml 125 ml 600 ml # Bowel Movements 0 0 1 Result Diagram: 01/27/174 01/27/174 Imaging Last Impressions Foot X-Ray 01/24/172 Signed Impressions: Service Date/Time: Tuesday, January 24, 2017 14:56 - CONCLUSION: No acute bony findings Eric Lopez MD Chest X-Ray 01/24/172 Signed Impressions: Service Date/Time: Tuesday, January 24, 2017 14:52 - CONCLUSION: No acute disease. Eric Lopez MD Objective Remarks GENERAL: This is a well-nourished, well-developed patient, in no apparent distress. CARDIOVASCULAR: Regular rate and regular rhythm without murmurs, gallops, or rubs. RESPIRATORY: Clear to auscultation. Breath sounds equal bilaterally. No wheezes , rales, or rhonchi. GASTROINTESTINAL: Abdomen soft, non-tender, nondistended. Normal, active bowel sounds MUSCULOSKELETAL:s/p right BKA- left foot gangrene NEURO: Alert & Oriented x4 to person, place, time, situation. Moves all ext x4 Procedures none Medications and IVs Current Medications Albuterol Sulfate (Ventolin Hfa Inh) 2 puff Q8HR PRN INH SOB/WHEEZING; Start at 17:45 Amlodipine Besylate (Norvasc) 10 mg DAILY PO Last administered on 01/26/17 09: 20; Start 01/25/17 at 09:00 Donepezil HCl (Aricept) 10 mg HS PO Last administered on 01/26/17 20:29; Start 01/24/17 at 21:00 Fluticasone/ Vilanterol (Breo Ellipta 100-25 Inh) 2 puff DAILY INH Last administered on 01/26/17 09:23; Start 01/25/17 at 09:00 Labetalol HCl (Trandate) 50 mg BID PO Last administered on 01/26/17 20:30; Start 01/24/17 at 21:00 Loratadine (Claritin) 10 mg DAILY PO Last administered on 01/26/17 09:19; Start 01/25/17 at 09:00 Multivitamins/ Minerals Therapeutic (Theragran M Tab) 1 tab DAILY PO Last administered on 01/26/17 09:21; Start 01/25/17 at 09:00 Phenytoin (Dilantin) 200 mg BID PO Last administered on 01/26/17 20:29; Start 01/24/17 at 21:00 Polysaccharide Iron Complex (Nu-Iron) 150 mg TID PO Last administered on 18:00; Start 01/24/17 at 18:00 Artificial Tears (Tears Naturale Opth Soln) 1 drop DAILY PRN EACH EYE IRRITATION OF FOREIGN BODY; Start 01/24/17 at 17:30 Sodium Bicarbonate (Sodium Bicarbonate) 650 mg BID PO Last administered on 20:29; Start 01/24/17 at 21:00 Calcitriol (Rocaltrol) 0.5 mcg DAILY PO Last administered on 01/26/17 09:20; Start 01/25/17 at 09:00 Miscellaneous (Pill Splitter) 1 ea UNSCH PRN OTHER SEE LABEL COMMENTS; Start at 17:45 Acetaminophen (Tylenol) 650 mg Q4H PRN PO FEVER/HEADACHE; Start 01/24/17 at 17: 30 Acetaminophen/ Hydrocodone Bitart ([place] 5-325 Mg) 1 tab Q4H PRN PO PAIN <5 Last administered on 01/26/17 06:30; Start 01/24/17 at 17:30 Ondansetron HCl (Zofran Inj) 4 mg Q8HR PRN IV PUSH NAUSEA; Start 01/24/17 at 17: 30 Clonidine (Catapres) 0.1 mg Q8HR PRN PO SBP> OR = 180, DBP> OR = 100 Last administered on 01/26/17 13:42; Start 01/24/17 at 18:45 Acetaminophen/ Hydrocodone Bitart 2 tab 2 tab Q4H PRN PO PAIN >5; Start at 09:15 Ceftriaxone Sodium/Sodium Chloride (Rocephin Inj/NS Inj) 100 ml @ 200 mls/hr Q24H IV Last administered on 01/26/17 12:01; Start 01/26/17 at 10:00 A/P Assessment and Plan A/P - gangrene of the left foot consulted vascular surgery ( per patient's request)- continue pain control NPO for now for possible surgical intervention later today. -hypertension; not well controlled- partly due to the pain-stop norvasc and start procardia- continue labetalol- clonidine prn continue to monitor and adjust the regimen as needed. -UTI- continue IV abx- UC with e-coli. -chronic renal insufficiency; at his baseline- will monitor the renal function -COPD with no exacerbation/ seizure disorder; resumed home meds -anemia- due to chronic disease- will monitor Karen Mahan MD January 27, 2017 09:57
[2017-01-27] MEDS: LABETALOL HCL 100 MG TAB PO SCH ×2 (10:32→20:45)
[2017-01-27] MEDS: PHENYTOIN SODIUM 100 MG CAP PO SCH ×2 (10:33→20:45)
[2017-01-27] MEDS: CALCITRIOL 0.25 MCG CAP PO SCH (10:33)
[2017-01-27] MEDS: POLYSACCHARIDE IRON COMPLEX 150 MG CAP PO SCH ×3 (10:34→17:11)
[2017-01-27] MEDS: LORATADINE 10 MG TAB PO SCH (10:35)
[2017-01-27] MEDS: FLUTICASONE 100 MCG/VILANTEROL 25 MCG INHALER INH SCH (10:35)
[2017-01-27] MEDS: SODIUM BICARBONATE 650 MG TAB PO SCH ×2 (10:35→20:44)
[2017-01-27] MEDS: cefTRIAXone INJ 1,000 MG in SODIUM CHLORIDE 0.9% INJ 100 ML IV SCH (10:36)
--- NOTE | 2017-01-27 10:52 | PD.VS.CON ---
History of Present Illness Chief Complaint: L foot gangrene Consult Requested by: Dr. Espinosa for 2nd opinion for major amputation History of Present Illness 72 yo male with PAD s/p L fem-pop bypass in past and R BKA. He notes that the week before he noted pain in the L foot. This has steadily progressed to significant tissue loss. No fevers. [facility] Past/Family/Social History Past Medical History PAD CRI COPD Past Surgical History R BKA L LE distal bypass Home Medications Reported Medications Albuterol 18 GM Inh (Ventolin Hfa 18 GM Inh)90 Mcg/Act Aer2 Puff INH Q8HR PRN ( SOB/WHEEZING) #1 INHALER Ref 0 01/24/17 Acetaminophen (Mapap)325 Mg [id number] Mg PO Q4HR PRN (MILD DISCOMFORT) Ref 0 01/24/17 Sodium Bicarbonate 650 Mg [id number] Mg PO BID #60 TAB Ref 0 01/24/17 Calcitriol (Rocaltrol)0.5 Mcg Cap0.5 Mcg PO DAILY #30 CAP Ref 0 01/24/17 Polysaccharide Iron Complex (Poly-Iron 150)150 Mg Uol737 Mg PO TID #60 CAP Ref 0 01/24/17 Amlodipine (Norvasc)10 Mg Tab10 Mg PO DAILY #30 TAB Ref 0 01/24/17 Multiple Vitamins W/ Minerals (Thera-M)1 Tab1 Tab PO DAILY Ref 0 01/24/17 Labetalol 100 Mg Tab50 Mg PO BID Ref 0 01/24/17 Fluticasone Nasal [place] (Flonase Nasal [place])50 Mcg/Act Spray2 [place] EACH NARE DAILY #1 BOTTLE Ref 0 01/24/17 Phenytoin Extended (Dilantin)100 Mg Lua085 Mg PO BID #180 CAP Ref 0 01/24/17 Loratadine 10 Mg Tab10 Mg PO DAILY Ref 0 01/24/17 Fluticasone-Vilanterol Inh (Breo Ellipta Inh)100-25 Mcg/Act Inh2 Puff INH DAILY #1 INHALER Ref 0 Use daily at the same time. 01/24/17 Aspirin 325 Mg Kdd288 Mg PO DAILY #30 TAB Ref 0 01/24/17 Polyvinyl Alcohol Opth 1.4% Soln1 Drop EACH EYE DAILY PRN (IRRITATION OF FOREIGN BODY) #15 ML 01/24/17 Donepezil 10 Mg Tab10 Mg PO HS #30 TAB Ref 0 01/24/17 Darbepoetin Gelacio Inj (Aranesp (Albumin Free) Inj)60 Mcg/0.3 Ml Inj30 Mcg SQ MONTHLY ON THE 26TH Ref 0 01/24/17 Coded Allergies: *MDRO Multi-Drug Resistant Organism (Verified Allergy, Unknown, 01/24/17) Acinetobacter baumannii MDR Review of Systems Constitutional: DENIES: Fever, Chills, Change in appetite Physical Exam Vitals/I&O Date Time Temp Pulse Resp B/P Pulse Ox O2 Delivery O2 Flow Rate FiO2 01/27/17 08:00 98.2 65 20 186/93 97 01/27/17 07:15 97 Room Air 01/27/17 04:00 Room Air 01/27/17 04:00 99.4 65 16 162/70 99 01/27/17 00:00 Room Air 01/27/17 00:00 98.8 61 14 160/58 98 01/26/17 20:00 Room Air 01/26/17 20:00 98.2 61 16 164/60 98 01/26/17 20:00 59 01/26/17 16:02 98.3 56 18 164/87 99 01/26/17 12:01 98.1 56 18 128/83 97 01/27/17 01/27/17 01/27/17 06:59 14:59 22:59 Intake Total 240 ml Output Total 600 ml Balance -360 ml Neuro: alert, pleasant HEENT: NC/AT Neck: no JVD Lungs: nonlabored breathing Extremities: necrotic, foul-smelling L forefoot extending to midfoot R BKA with no open skin but thin overlying tibia Laboratory Tests Test 01/27/17 04:44 White Blood Count 13.2 Red Blood Count 3.01 Hemoglobin 9.7 Hematocrit 29.5 Mean Corpuscular Volume 98.1 Mean Corpuscular Hemoglobin 32.1 Mean Corpuscular Hemoglobin 32.8 Concent Red Cell Distribution Width 15.3 Platelet Count 224 Mean Platelet Volume 9.1 Neutrophils (%) (Auto) 81.0 Lymphocytes (%) (Auto) 8.2 Monocytes (%) (Auto) 7.7 Eosinophils (%) (Auto) 2.8 Basophils (%) (Auto) 0.3 Neutrophils # (Auto) 10.7 Lymphocytes # (Auto) 1.1 Monocytes # (Auto) 1.0 Eosinophils # (Auto) 0.4 Basophils # (Auto) 0.0 CBC Comment DIFF FINAL Differential Comment Sodium Level 139 Potassium Level 4.3 Chloride Level 109 Carbon Dioxide Level 21.1 Anion Gap 9 Blood Urea Nitrogen 50 Creatinine 2.40 Estimat Glomerular Filtration 27 Rate Random Glucose 99 Calcium Level 9.6 Date/Time Procedure Status Source Growth 01/24/17 18:45 Urine Culture - Final Complete Urine Clean Catch Escherichia Coli 01/24/17 14:35 Aerobic Blood Culture - Preliminary Resulted Blood Peripheral NO GROWTH IN 2 DAYS 01/24/17 14:35 Anaerobic Blood Culture - Preliminary Resulted Blood Peripheral NO GROWTH IN 2 DAYS Assessment and Plan Plan I agree that he has an unsalvageable foot and agree with major amputation, either 1- or 2-stage. Significant risk for ultimate AKA. Please call with any questions. Josiah Rodriguez MD FACS salesperson [employer] [facility] at [facility] [phone] Josiah Rodriguez MD January 27, 2017 10:52
--- NOTE | 2017-01-27 11:30 | MB ---
cc: DAISY MAHNA MD, JAMES DATE OF CONSULTATION January 27, [address] Jose Mahan REASON FOR CONSULTATION Ischemic gangrene left foot. HISTORY This 71-year-old hypertensive male, 100 pack-year smoker, presents with ischemic gangrene of left foot. Years ago he required right [id number] amputation for ischemic gangrene of the right foot. On August 28, 2012, I performed a left femoral-popliteal bypass (below-knee, in situ) for limb-threatening left lower extremity ischemia. Subsequently, ischemic sores within the left foot spontaneously healed. He continued to smoke two packs per day. When I last saw him in 2014, duplex scans indicated continued wide patency of the in situ bypass. However, after 2014, he was lost to follow-up and has subsequently resided in the [facility]. He tells me that two weeks before [place] he developed sudden onset of pain within the left foot and since that time developed progressive discoloration with ischemic necrosis within the left forefoot. PAST MEDICAL HISTORY 1. Hypertension. 2. Lifelong smoker - 100 pack-year history. 3. COPD. 4. Seizure disorder. MEDICATIONS Detailed in the med-reconciliation form. ALLERGIES None. EXAMINATION GENERAL: A well-developed, chronically debilitated-appearing 71-year-old male with nonetheless pleasant affect. LUNGS: Symmetrically expanded and clear with diminished breath sounds throughout. NECK: Bilateral carotid bifurcation bruits are present. No neck vein distension or HJR. No cervical lymphadenopathy or thyromegaly. CARDIAC: Rhythm is sinus. A 2/6 systolic murmur aortic outflow tract, non-radiating. ABDOMEN: Soft, nontender. EXTREMITIES: Healed right [id number] amputation. Advanced ischemic necrosis involves the left forefoot. The left great toe is globally necrotic, dry, blackened. Violaceous ischemic ulcerations are distributed across the medial aspect of the left first metatarsophalangeal joint along with markedly diminished capillary refill and warmth throughout the left foot. The in situ vein graft is non-pulsatile and devoid of Doppler flow. Left femoral pulse is palpable. Left popliteal and pedal pulses are not palpable. NEUROLOGIC: No gross focal deficit. I have reviewed treatment options with Mr. Nath. Any attempt at limb salvage would require repeat angiographic evaluation (problematic in view of his markedly diminished renal function) as well as repeat femoral-popliteal bypass. He has inadequate autogenous vein to support a repeat bypass attempt. In view of the advanced necrosis in his left foot, comorbid renal deficiency and lack of adequate autogenous tissue for repeat bypass attempt, I believe primary below-knee amputation is the most reasonable. Alternatively, above-knee amputation may be required if perfusion at the below-knee level does not appear adequate (he is unlikely to ever walk again with prosthesis. I have explained all this to Mr. Nath. He agrees to primary amputation. We will arrange later today. Thank you for allowing me to participate in this gentleman's care. MD PILO Turk/LIBBY /8:58 AM /11:14 AM
[2017-01-27] MEDS ORDERED: ePHEDrine/NS 25 MG/5 ML SYR IV ONE (12:00)
[2017-01-27] MEDS: cloNIDine HCL 0.1 MG TAB PO PRN (12:15)
[2017-01-27] MEDS ORDERED: LIDOCAINE HCL 1% 50 ML VIAL ONE (12:25)
[2017-01-27] MEDS ORDERED: BUPIVACAINE/EPINEPHRINE 0.5% 50 ML VIAL ONE (12:25)
[2017-01-27] MEDS ORDERED: MIDAZOLAM HCL 2 MG/2 ML VIAL ONE (12:44)
[2017-01-27] MEDS ORDERED: VANCOMYCIN HCL 1000 MG VIAL ONE (13:07)
[2017-01-27] MEDS ORDERED: NEOSTIGMINE 3 MG/3 ML SYR IV ONE (14:06)
[2017-01-27] MEDS ORDERED: PROPOFOL 200 MG/20 ML AMP IV ONE (14:06)
[2017-01-27] MEDS ORDERED: ONDANSETRON HCL 4 MG/2 ML VIAL IV PUSH ONE (14:07)
[2017-01-27] MEDS ORDERED: LACTATED RINGER'S 1000 ML INJ 1,000 ML IV ONE (14:07)
[2017-01-27] MEDS ORDERED: KETOROLAC TROMETHAMINE 30 MG/ML (IVP) VIAL ONE (14:47)
[2017-01-27] MEDS ORDERED: fentaNYL CITRATE 250 MCG/5 ML AMP ONE (14:57)
[2017-01-27] MEDS ORDERED: HYDROmorphone HCL PF 2 MG/ML VIAL IV PRN (15:00)
[2017-01-27] MEDS ORDERED: DO NOT ADM ANY ANTICOAGULANT DRUGS PRN (15:15)
[2017-01-27] MEDS ORDERED: SODIUM CHLORIDE FLUSH PRN IV FLUSH (15:15)
[2017-01-27] MEDS: KETOROLAC TROMETHAMINE 10 MG TAB PO SCH ×2 (17:11→23:48)
[2017-01-27] MEDS: ENOXAPARIN SODIUM 30 MG/0.3 ML SYRINGE SQ SCH (17:11)
[2017-01-27] MEDS: DONEPEZIL HCL 5 MG TAB PO SCH (20:45)
[2017-01-27] MEDS: SODIUM CHLORIDE FLUSH BID IV FLUSH SCH (20:47)
[2017-01-28] VITALS (10 sets, daily range): BP systolic 138–183; BP diastolic 52–75; PULSE 45–80; RESP 16–20; TEMP 97.4–98.1; O2SAT 95–100
[2017-01-28] MEDS: ENOXAPARIN SODIUM 30 MG/0.3 ML SYRINGE SQ SCH ×2 (05:18→18:11)
[2017-01-28] MEDS: LORATADINE 10 MG TAB PO SCH (09:44)
[2017-01-28] MEDS: POLYSACCHARIDE IRON COMPLEX 150 MG CAP PO SCH ×3 (09:44→18:11)
[2017-01-28] MEDS: cefTRIAXone INJ 1,000 MG in SODIUM CHLORIDE 0.9% INJ 100 ML IV SCH (09:44)
[2017-01-28] MEDS: SODIUM BICARBONATE 650 MG TAB PO SCH ×2 (09:44→21:15)
[2017-01-28] MEDS: MULTIVITAMINS/MINERALS THERAPEUTIC TAB PO SCH (09:44)
[2017-01-28] MEDS: PHENYTOIN SODIUM 100 MG CAP PO SCH ×2 (09:44→21:14)
[2017-01-28] MEDS: LABETALOL HCL 100 MG TAB PO SCH ×2 (09:45→21:14)
[2017-01-28] MEDS: NIFEdipine 30 MG SUSTAINED RELEASE TAB PO SCH (09:45)
[2017-01-28] MEDS: KETOROLAC TROMETHAMINE 10 MG TAB PO SCH ×2 (09:45→16:33)
[2017-01-28] MEDS: SODIUM CHLORIDE FLUSH BID IV FLUSH SCH ×2 (09:46→21:16)
[2017-01-28] MEDS: FLUTICASONE 100 MCG/VILANTEROL 25 MCG INHALER INH SCH (09:46)
[2017-01-28] MEDS: CALCITRIOL 0.25 MCG CAP PO SCH (11:49)
--- NOTE | 2017-01-28 12:02 | HHI.PR ---
Subjective Remarks in no distress. pain is fairly controlled. no other complaints. Objective Vitals Vital Signs Date Time Temp Pulse Resp B/P Pulse Ox O2 Delivery O2 Flow Rate FiO2 01/28/17 09:54 Nasal Cannula 3.00 01/28/17 09:54 50 01/28/17 08:00 97.8 52 20 166/71 98 160/61 01/28/17 04:00 97.6 56 16 152/62 99 01/28/17 03:12 45 01/28/17 02:52 53 01/28/17 01:14 18 01/28/17 00:00 97.4 80 16 138/52 100 01/27/17 20:45 Room Air 01/27/17 20:00 97.2 52 14 148/60 99 01/27/17 17:53 61 01/27/17 16:00 97.8 55 20 160/74 100 01/27/17 15:15 97.6 50 16 142/66 100 Nasal Cannula 2 01/27/17 15:00 51 18 129/61 100 01/27/17 14:45 51 18 127/60 100 Nasal Cannula 2 01/27/17 14:40 98.2 53 18 133/60 100 Nasal Cannula 2 01/27/17 12:15 98.3 65 18 173/103 97 I/O 01/27/17 01/27/17 01/27/17 01/28/17 01/28/17 01/28/17 06:59 14:59 22:59 06:59 14:59 22:59 Intake Total 240 ml 1000 ml 580 ml 240 ml Output Total 600 ml 775 ml 575 ml 575 ml Balance -360 ml 225 ml 5 ml -335 ml Intake Oral 240 ml 0 ml 480 ml 240 ml IV Total 100 ml Other 1000 ml Output Urine Total 600 ml 725 ml 575 ml 575 ml Estimated Blood Loss 50 ml # Bowel Movements 1 0 0 0 Result Diagram: 01/27/174 01/27/17443 Imaging Last Impressions Foot X-Ray 01/24/171431 Signed Impressions: Service Date/Time: Tuesday, January 24, 2017 14:56 - CONCLUSION: No acute bony findings Eric Lopez MD Chest X-Ray 01/24/17 1432 Signed Impressions: Service Date/Time: Tuesday, January 24, 2017 14:52 - CONCLUSION: No acute disease. Eirc Lopez MD Objective Remarks GENERAL: This is a well-nourished, well-developed patient, in no apparent distress. CARDIOVASCULAR: Regular rate and regular rhythm without murmurs, gallops, or rubs. RESPIRATORY: Clear to auscultation. Breath sounds equal bilaterally. No wheezes , rales, or rhonchi. GASTROINTESTINAL: Abdomen soft, non-tender, nondistended. Normal, active bowel sounds MUSCULOSKELETAL:s/p left BKA-stump covered with clean dressing- s/p right BKA NEURO: Alert & Oriented x4 to person, place, time, situation. Moves all ext x4 Procedures left BKA Medications and IVs Current Medications Albuterol Sulfate (Ventolin Hfa Inh) 2 puff Q8HR PRN INH SOB/WHEEZING; Start at 17:45 Amlodipine Besylate (Norvasc) 10 mg DAILY PO Last administered on 01/27/17 10: 34; Start 01/25/17 at 09:00; Stop 01/27/17 at 12:00; Status DC Donepezil HCl (Aricept) 10 mg HS PO Last administered on 01/27/17 20:45; Start 01/24/17 at 21:00 Fluticasone/ Vilanterol (Breo Ellipta 100-25 Inh) 2 puff DAILY INH Last administered on 01/28/17 09:46; Start 01/25/17 at 09:00 Labetalol HCl (Trandate) 50 mg BID PO Last administered on 01/28/17 09:45; Start 01/24/17 at 21:00 Loratadine (Claritin) 10 mg DAILY PO Last administered on 01/28/17 09:44; Start 01/25/17 at 09:00 Multivitamins/ Minerals Therapeutic (Theragran M Tab) 1 tab DAILY PO Last administered on 01/28/17 09:44; Start 01/25/17 at 09:00 Phenytoin (Dilantin) 200 mg BID PO Last administered on 01/28/17 09:44; Start 01/24/17 at 21:00 Polysaccharide Iron Complex (Nu-Iron) 150 mg TID PO Last administered on 09:44; Start 01/24/17 at 18:00 Artificial Tears (Tears Naturale Opth Soln) 1 drop DAILY PRN EACH EYE IRRITATION OF FOREIGN BODY; Start 01/24/17 at 17:30 Sodium Bicarbonate (Sodium Bicarbonate) 650 mg BID PO Last administered on 09:44; Start 01/24/17 at 21:00 Calcitriol (Rocaltrol) 0.5 mcg DAILY PO Last administered on 01/28/17 11:49; Start 01/25/17 at 09:00 Miscellaneous (Pill Splitter) 1 ea UNSCH PRN OTHER SEE LABEL COMMENTS; Start at 17:45 Acetaminophen (Tylenol) 650 mg Q4H PRN PO FEVER/HEADACHE; Start 01/24/17 at 17: 30 Acetaminophen/ Hydrocodone Bitart ([place] 5-325 Mg) 1 tab Q4H PRN PO PAIN <5 Last administered on 01/26/17 06:30; Start 01/24/17 at 17:30 Ondansetron HCl (Zofran Inj) 4 mg Q8HR PRN IV PUSH NAUSEA; Start 01/24/17 at 17: 30 Clonidine (Catapres) 0.1 mg Q8HR PRN PO SBP> OR = 180, DBP> OR = 100 Last administered on 01/27/17 12:15; Start 01/24/17 at 18:45 Acetaminophen/ Hydrocodone Bitart 2 tab 2 tab Q4H PRN PO PAIN >5; Start at 09:15 Ceftriaxone Sodium/Sodium Chloride (Rocephin Inj/NS Inj) 100 ml @ 200 mls/hr Q24H IV Last administered on 01/28/17 09:44; Start 01/26/17 at 10:00 Nifedipine (Procardia Xl) 30 mg DAILY PO Last administered on 01/28/17 09:45; Start 01/28/17 at 09:00 Bupivacaine HCl/ Epinephrine Bitart (Sensorcaine-Epi 0.5% 50 ml Inj) 50 ml STK- MED ONCE .ROUTE Last administered on 01/27/17 13:50; Start 01/27/17 at 12:25; Stop 01/27/17 at 12:26; Status DC Lidocaine HCl (Xylocaine 1% Inj (50 ml)) 50 ml STK-MED ONCE .ROUTE ; Start at 12:25; Stop 01/27/17 at 12:26; Status DC Midazolam HCl (Versed Inj) 2 mg STK-MED ONCE .ROUTE ; Start 01/27/17 at 12:44; Stop 01/27/17 at 12:45; Status DC Vancomycin HCl (Vancomycin Inj) 1,000 mg STK-MED ONCE .ROUTE Last administered on 01/27/17 13:45; Start 01/27/17 at 13:07; Stop 01/27/17 at 13:08; Status DC Ketorolac Tromethamine (Toradol Inj) 30 mg STK-MED ONCE .ROUTE ; Start 01/27/17 at 14:47; Stop 01/27/17 at 14:48; Status DC Fentanyl Citrate (fentaNYL INJ) 250 mcg STK-MED ONCE .ROUTE ; Start 01/27/17 at 14:57; Stop 01/27/17 at 14:58; Status DC Hydromorphone HCl (Dilaudid Pf Inj) 2 mg Q4H PRN IV BREAKTHROUGH PAIN 5-10; Start 01/27/17 at 15:00 Ketorolac Tromethamine (Toradol) 10 mg Q8H PO Last administered on 01/28/17 09: 45; Start 01/27/17 at 16:00; Stop 01/30/17 at 15:59 Enoxaparin Sodium (Lovenox Inj) 30 mg Q12H SQ Last administered on 01/28/17 05: 18; Start 01/27/17 at 18:00 Sodium Chloride (NS Flush) 2 ml BID IV FLUSH Last administered on 01/28/17 09: 46; Start 01/27/17 at 21:00 Sodium Chloride (NS Flush) 2 ml UNSCH PRN IV FLUSH FLUSH AFTER USING IV ACCESS ; Start 01/27/17 at 15:15 Miscellaneous Information ALL NURSING DEPARTME... 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 -hypertension; not well controlled-stopped norvasc and started on Procardia- continue to monitor and adjust the regimen as needed. -UTI- continue IV abx- UC with e-coli. -chronic renal insufficiency; at his baseline- will monitor the renal function -COPD with no exacerbation/ seizure disorder; resumed home meds -anemia- due to chronic disease- will monitor -DVT prophylaxis with subq Lovenox. Karen Mahan MD January 28, 2017 12:02
--- NOTE | 2017-01-28 15:41 | EKG ---
Date Performed: 01/27/2017 Time Performed: 13:08:36 PTAGE: 72 years EKG: Sinus rhythm WITH SINUS ARRHYTHMIA SEPTAL MYOCARDIAL INFARCTION , PROBABLY OLD Compared to prior tracing no signi ficant change ABNORMAL ECG INTERPRETATION BASED ON A DEFAULT AGE OF 39 YEARS PREVIOUS TRACING : 08/20/2013 18.05 DOCTOR: Liv Gann Interpretating Date/Time 01/28/2017 15:37:18
[2017-01-28] MEDS: DONEPEZIL HCL 5 MG TAB PO SCH (21:15)
[2017-01-29] VITALS (8 sets, daily range): BP systolic 162–191; BP diastolic 70–99; PULSE 56–69; RESP 16–20; TEMP 97.8–98.6; O2SAT 93–97
[2017-01-29] MEDS: KETOROLAC TROMETHAMINE 10 MG TAB PO SCH ×4 (00:02→23:15)
[2017-01-29] MEDS: ENOXAPARIN SODIUM 30 MG/0.3 ML SYRINGE SQ SCH ×2 (05:02→16:52)
[2017-01-29 05:52] LABS: AUTOMATED NEUTROPHIL # 8.7 TH/MM3 (1.8-7.7); BASOPHIL % 0.3 % (0.0-2.0); EOSINOPHIL # 0.2 TH/MM3 (0-0.4); EOSINOPHIL % 2.3 % (0.0-4.0); HEMATOCRIT 23.6 % (39.0-51.0); HEMO FLAGS DIFF FINAL; LYMPH % 8.1 % (9.0-44.0); LYMPHOCYTE # 0.9 TH/MM3 (1.0-4.8); MEAN CELL VOLUME 97.3 FL (80.0-100.0); MEAN CORPUSCULAR HGB CONC 34.9 % (32.0-36.0); MONO % 8.4 % (0.0-8.0); NEUT % 80.9 % (16.0-70.0); PLATELET COUNT 230 TH/MM3 (150-450); RED BLOOD COUNT 2.42 MIL/MM3 (4.50-5.90); RED CELL DISTRIBUTION WIDTH 14.8 % (11.6-17.2); WHITE BLOOD COUNT 10.7 TH/MM3 (4.0-11.0)
[2017-01-29 06:13] LABS: BICARBONATE 19.9 MEQ/L (21.0-32.0); POTASSIUM 4.2 MEQ/L (3.5-5.1)
[2017-01-29] MEDS: SODIUM CHLORIDE FLUSH BID IV FLUSH SCH ×2 (08:21→20:14)
[2017-01-29] MEDS: LORATADINE 10 MG TAB PO SCH (08:21)
[2017-01-29] MEDS: FLUTICASONE 100 MCG/VILANTEROL 25 MCG INHALER INH SCH (08:21)
[2017-01-29] MEDS: POLYSACCHARIDE IRON COMPLEX 150 MG CAP PO SCH ×3 (08:22→16:52)
[2017-01-29] MEDS: PHENYTOIN SODIUM 100 MG CAP PO SCH ×2 (08:22→20:15)
[2017-01-29] MEDS: NIFEdipine 30 MG SUSTAINED RELEASE TAB PO SCH (08:22)
[2017-01-29] MEDS: SODIUM BICARBONATE 650 MG TAB PO SCH ×2 (08:23→20:15)
[2017-01-29] MEDS: CALCITRIOL 0.25 MCG CAP PO SCH (08:23)
[2017-01-29] MEDS: MULTIVITAMINS/MINERALS THERAPEUTIC TAB PO SCH (08:23)
[2017-01-29] MEDS: cefTRIAXone INJ 1,000 MG in SODIUM CHLORIDE 0.9% INJ 100 ML IV SCH (08:26)
[2017-01-29] MEDS: LABETALOL HCL 100 MG TAB PO SCH ×2 (08:26→20:14)
--- NOTE | 2017-01-29 10:06 | HHI.PR ---
Subjective Remarks resting comfortably with no distress. pain is controlled. no new complaints. Objective Vitals Vital Signs Date Time Temp Pulse Resp B/P Pulse Ox O2 Delivery O2 Flow Rate FiO2 01/29/17 09:51 18 01/29/17 09:43 97 Room Air 01/29/17 08:00 98.4 68 20 172/99 97 01/29/17 04:30 97.8 62 16 162/72 93 01/29/17 04:05 62 01/28/17 23:18 97.8 64 16 153/72 95 01/28/17 21:15 96 Room Air 01/28/17 19:55 97.6 69 16 171/70 97 162/58 01/28/17 16:00 98.1 61 20 152/71 97 01/28/17 12:00 Room Air 01/28/17 12:00 97.7 58 16 183/75 100 169/55 I/O 01/28/17 01/28/17 01/28/17 01/29/17 01/29/17 01/29/17 07:00 15:00 23:00 07:00 15:00 23:00 Intake Total 240 ml 960 ml 240 ml 120 ml Output Total 575 ml 600 ml 350 ml 400 ml Balance -335 ml 360 ml -110 ml -280 ml Intake Oral 240 ml 960 ml 240 ml 120 ml Output Urine Total 575 ml 600 ml 350 ml 400 ml # Bowel Movements 0 0 0 0 Result Diagram: 01/29/17 0510 01/29/17 0510 Imaging Last Impressions Foot X-Ray 01/24/172 Signed Impressions: Service Date/Time: Tuesday, January 24, 2017 14:56 - CONCLUSION: No acute bony findings Eric Lopez MD Chest X-Ray 01/24/17 1432 Signed Impressions: Service Date/Time: Tuesday, January 24, 2017 14:52 - CONCLUSION: No acute disease. Eric Lopez MD Objective Remarks GENERAL: This is a well-nourished, well-developed patient, in no apparent distress. CARDIOVASCULAR: Regular rate and regular rhythm without murmurs, gallops, or rubs. RESPIRATORY: Clear to auscultation. Breath sounds equal bilaterally. No wheezes , rales, or rhonchi. GASTROINTESTINAL: Abdomen soft, non-tender, nondistended. Normal, active bowel sounds MUSCULOSKELETAL:s/p recent left BKA-stump covered with clean dressing- s/p right BKA NEURO: Alert & Oriented x4 to person, place, time, situation. Moves all ext x4 Procedures left BKA Medications and IVs Current Medications Albuterol Sulfate (Ventolin Hfa Inh) 2 puff Q8HR PRN INH SOB/WHEEZING; Start at 17:45 Amlodipine Besylate (Norvasc) 10 mg DAILY PO Last administered on 01/27/17 10: 34; Start 01/25/17 at 09:00; Stop 01/27/17 at 12:00; Status DC Donepezil HCl (Aricept) 10 mg HS PO Last administered on 01/28/17 21:15; Start 01/24/17 at 21:00 Fluticasone/ Vilanterol (Breo Ellipta 100-25 Inh) 2 puff DAILY INH Last administered on 01/29/17 08:21; Start 01/25/17 at 09:00 Labetalol HCl (Trandate) 50 mg BID PO Last administered on 01/29/17 08:26; Start 01/24/17 at 21:00 Loratadine (Claritin) 10 mg DAILY PO Last administered on 01/29/17 08:21; Start 01/25/17 at 09:00 Multivitamins/ Minerals Therapeutic (Theragran M Tab) 1 tab DAILY PO Last administered on 01/29/17 08:23; Start 01/25/17 at 09:00 Phenytoin (Dilantin) 200 mg BID PO Last administered on 01/29/17 08:22; Start 01/24/17 at 21:00 Polysaccharide Iron Complex (Nu-Iron) 150 mg TID PO Last administered on 08:22; Start 01/24/17 at 18:00 Artificial Tears (Tears Naturale Opth Soln) 1 drop DAILY PRN EACH EYE IRRITATION OF FOREIGN BODY; Start 01/24/17 at 17:30 Sodium Bicarbonate (Sodium Bicarbonate) 650 mg BID PO Last administered on 01/29 08:23; Start 01/24/17 at 21:00 Calcitriol (Rocaltrol) 0.5 mcg DAILY PO Last administered on 01/29/17 08:23; Start 01/25/17 at 09:00 Miscellaneous (Pill Splitter) 1 ea UNSCH PRN OTHER SEE LABEL COMMENTS; Start at 17:45 Acetaminophen (Tylenol) 650 mg Q4H PRN PO FEVER/HEADACHE; Start 01/24/17 at 17: 30 Acetaminophen/ Hydrocodone Bitart ([place] 5-325 Mg) 1 tab Q4H PRN PO PAIN <5 Last administered on 01/26/17 06:30; Start 01/24/17 at 17:30 Ondansetron HCl (Zofran Inj) 4 mg Q8HR PRN IV PUSH NAUSEA; Start 01/24/17 at 17: 30 Clonidine (Catapres) 0.1 mg Q8HR PRN PO SBP> OR = 180, DBP> OR = 100 Last administered on 01/27/17 12:15; Start 01/24/17 at 18:45 Acetaminophen/ Hydrocodone Bitart 2 tab 2 tab Q4H PRN PO PAIN >5; Start at 09:15 Ceftriaxone Sodium/Sodium Chloride (Rocephin Inj/NS Inj) 100 ml @ 200 mls/hr Q24H IV Last administered on 01/29/17 08:26; Start 01/26/17 at 10:00 Nifedipine (Procardia Xl) 30 mg DAILY PO Last administered on 01/29/17 08:22; Start 01/28/17 at 09:00 Bupivacaine HCl/ Epinephrine Bitart (Sensorcaine-Epi 0.5% 50 ml Inj) 50 ml STK- MED ONCE .ROUTE Last administered on 01/27/17 13:50; Start 01/27/17 at 12:25; Stop 01/27/17 at 12:26; Status DC Lidocaine HCl (Xylocaine 1% Inj (50 ml)) 50 ml STK-MED ONCE .ROUTE ; Start at 12:25; Stop 01/27/17 at 12:26; Status DC Midazolam HCl (Versed Inj) 2 mg STK-MED ONCE .ROUTE ; Start 01/27/17 at 12:44; Stop 01/27/17 at 12:45; Status DC Vancomycin HCl (Vancomycin Inj) 1,000 mg STK-MED ONCE .ROUTE Last administered on 01/27/17 13:45; Start 5/8/17 at 13:07; Stop 01/27/17 at 13:08; Status DC Ketorolac Tromethamine (Toradol Inj) 30 mg STK-MED ONCE .ROUTE ; Start 01/27/17 at 14:47; Stop 01/27/17 at 14:48; Status DC Fentanyl Citrate (fentaNYL INJ) 250 mcg STK-MED ONCE .ROUTE ; Start 01/27/17 at 14:57; Stop 01/27/17 at 14:58; Status DC Hydromorphone HCl (Dilaudid Pf Inj) 2 mg Q4H PRN IV BREAKTHROUGH PAIN 5-10; Start 01/27/17 at 15:00 Ketorolac Tromethamine (Toradol) 10 mg Q8H PO Last administered on 01/29/17 08 :21; Start 01/27/17 at 16:00; Stop 01/30/17 at 15:59 Enoxaparin Sodium (Lovenox Inj) 30 mg Q12H SQ Last administered on 01/29/17 05 :02; Start 01/27/17 at 18:00 Sodium Chloride (NS Flush) 2 ml BID IV FLUSH Last administered on 01/29/17 08: 21; Start 01/27/17 at 21:00 Sodium Chloride (NS Flush) 2 ml UNSCH PRN IV FLUSH FLUSH AFTER USING IV ACCESS ; Start 01/27/17 at 15:15 Miscellaneous Information ALL NURSING DEPARTME... 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 -hypertension; not well controlled-stopped norvasc and started on Procardia; will increase the dose to 60 mg po daily. continue to monitor and adjust the regimen as needed. -UTI- continue IV abx- UC with e-coli. -chronic renal insufficiency; at his baseline- will monitor the renal function -COPD with no exacerbation/ seizure disorder; resumed home meds -anemia- acute on chronic; post-op superimposed on chronic disease anemia- will monitor H/H for now. -DVT prophylaxis with subq Lovenox. Karen Mahan MD January 29, 2017 10:06
[2017-01-29] MEDS: cloNIDine HCL 0.1 MG TAB PO PRN ×2 (11:53→23:32)
[2017-01-29] MEDS ORDERED: NIFEdipine 30 MG SUSTAINED RELEASE TAB PO ONE (19:45)
[2017-01-29] MEDS: DONEPEZIL HCL 5 MG TAB PO SCH (20:14)
[2017-01-30 04:00] VITALS: BP 171/74; PULSE 57; RESP 18; TEMP 98; O2SAT 94
[2017-01-30] MEDS: ENOXAPARIN SODIUM 30 MG/0.3 ML SYRINGE SQ SCH (05:08)
[2017-01-30 05:44] LABS: HEMATOCRIT 23.2 % (39.0-51.0)
[2017-01-30 07:51] VITALS: PULSE 54
[2017-01-30 08:00] VITALS: BP 163/72; PULSE 57; RESP 18; TEMP 98.2; O2SAT 97
[2017-01-30] MEDS: PHENYTOIN SODIUM 100 MG CAP PO SCH (08:16)
[2017-01-30] MEDS: LORATADINE 10 MG TAB PO SCH (08:17)
[2017-01-30] MEDS: LABETALOL HCL 100 MG TAB PO SCH (08:17)
[2017-01-30] MEDS: MULTIVITAMINS/MINERALS THERAPEUTIC TAB PO SCH (08:17)
[2017-01-30] MEDS: POLYSACCHARIDE IRON COMPLEX 150 MG CAP PO SCH (08:17)
[2017-01-30] MEDS: SODIUM CHLORIDE FLUSH BID IV FLUSH SCH (08:18)
[2017-01-30] MEDS: SODIUM BICARBONATE 650 MG TAB PO SCH (08:18)
[2017-01-30] MEDS: CALCITRIOL 0.25 MCG CAP PO SCH (08:18)
[2017-01-30] MEDS: KETOROLAC TROMETHAMINE 10 MG TAB PO SCH (08:20)
[2017-01-30] MEDS: FLUTICASONE 100 MCG/VILANTEROL 25 MCG INHALER INH SCH (08:23)
--- NOTE | 2017-01-30 08:25 | HHI.PR ---
Subjective Remarks resting comfortably with no distress. pain is controlled. no new complaints. d/w the RN at the bedside. Objective Vitals Vital Signs Date Time Temp Pulse Resp B/P Pulse Ox O2 Delivery O2 Flow Rate FiO2 01/30/17 04:00 98.0 57 18 171/74 94 01/29/17 20:30 Room Air 01/29/17 20:00 58 01/29/17 20:00 98.1 64 18 163/70 96 01/29/17 16:00 98.1 56 18 171/72 95 01/29/17 12:23 69 01/29/17 11:58 98.6 61 20 183/87 95 01/29/17 09:51 18 01/29/17 09:43 97 Room Air I/O 01/29/17 01/29/17 01/29/17 01/30/17 01/30/17 01/30/17 07:00 15:00 23:00 07:00 15:00 23:00 Intake Total 120 ml 580 ml 482 ml 480 ml Output Total 400 ml 750 ml 650 ml 425 ml Balance -280 ml -170 ml -168 ml 55 ml Intake Oral 120 ml 480 ml 480 ml 480 ml IV Total 100 ml 2 ml Output Urine Total 400 ml 750 ml 650 ml 425 ml # Bowel Movements 0 0 1 0 Result Diagram: 01/30/1751601/29/17 0510 Imaging Last Impressions Foot X-Ray 01/24/171431 Signed Impressions: Service Date/Time: Tuesday, January 24, 2017 14:56 - CONCLUSION: No acute bony findings Eric Lopez MD Chest X-Ray 01/24/171431 Signed Impressions: Service Date/Time: Tuesday, January 24, 2017 14:52 - CONCLUSION: No acute disease. Eric Lopez MD Objective Remarks GENERAL: This is a well-nourished, well-developed patient, in no apparent distress. CARDIOVASCULAR: Regular rate and regular rhythm without murmurs, gallops, or rubs. RESPIRATORY: Clear to auscultation. Breath sounds equal bilaterally. No wheezes , rales, or rhonchi. GASTROINTESTINAL: Abdomen soft, non-tender, nondistended. Normal, active bowel sounds MUSCULOSKELETAL:s/p recent left BKA-stump covered with clean dressing- s/p right BKA NEURO: Alert & Oriented x4 to person, place, time, situation. Moves all ext x4 Procedures left BKA Medications and IVs Current Medications Albuterol Sulfate (Ventolin Hfa Inh) 2 puff Q8HR PRN INH SOB/WHEEZING; Start at 17:45 Amlodipine Besylate (Norvasc) 10 mg DAILY PO Last administered on 01/27/17 10: 34; Start 01/25/17 at 09:00; Stop 01/27/17 at 12:00; Status DC Donepezil HCl (Aricept) 10 mg HS PO Last administered on 01/29/17 20:14; Start 01/24/17 at 21:00 Fluticasone/ Vilanterol (Breo Ellipta 100-25 Inh) 2 puff DAILY INH Last administered on 01/29/17 08:21; Start 01/25/17 at 09:00 Labetalol HCl (Trandate) 50 mg BID PO Last administered on 01/29/17 20:14; Start 01/24/17 at 21:00 Loratadine (Claritin) 10 mg DAILY PO Last administered on 01/29/17 08:21; Start 01/25/17 at 09:00 Multivitamins/ Minerals Therapeutic (Theragran M Tab) 1 tab DAILY PO Last administered on 01/29/17 08:23; Start 01/25/17 at 09:00 Phenytoin (Dilantin) 200 mg BID PO Last administered on 01/29/17 20:15; Start 01/24/17 at 21:00 Polysaccharide Iron Complex (Nu-Iron) 150 mg TID PO Last administered on 16:52; Start 01/24/17 at 18:00 Artificial Tears (Tears Naturale Opth Soln) 1 drop DAILY PRN EACH EYE IRRITATION OF FOREIGN BODY; Start 01/24/17 at 17:30 Sodium Bicarbonate (Sodium Bicarbonate) 650 mg BID PO Last administered on 01/29 20:15; Start 01/24/17 at 21:00 Calcitriol (Rocaltrol) 0.5 mcg DAILY PO Last administered on 01/29/17 08:23; Start 01/25/17 at 09:00 Miscellaneous (Pill Splitter) 1 ea UNSCH PRN OTHER SEE LABEL COMMENTS; Start at 17:45 Acetaminophen (Tylenol) 650 mg Q4H PRN PO FEVER/HEADACHE; Start 01/24/17 at 17: 30 Acetaminophen/ Hydrocodone Bitart ([place] 5-325 Mg) 1 tab Q4H PRN PO PAIN <5 Last administered on 01/26/17 06:30; Start 01/24/17 at 17:30 Ondansetron HCl (Zofran Inj) 4 mg Q8HR PRN IV PUSH NAUSEA; Start 01/24/17 at 17: 30 Clonidine (Catapres) 0.1 mg Q8HR PRN PO SBP> OR = 180, DBP> OR = 100 Last administered on 01/29/17 23:32; Start 01/24/17 at 18:45 Acetaminophen/ Hydrocodone Bitart 2 tab 2 tab Q4H PRN PO PAIN >5; Start at 09:15 Ceftriaxone Sodium/Sodium Chloride (Rocephin Inj/NS Inj) 100 ml @ 200 mls/hr Q24H IV Last administered on 01/29/17 08:26; Start 01/26/17 at 10:00 Nifedipine (Procardia Xl) 30 mg DAILY PO Last administered on 01/29/17 08:22; Start 01/28/17 at 09:00; Stop 01/29/17 at 10:08; Status DC Bupivacaine HCl/ Epinephrine Bitart (Sensorcaine-Epi 0.5% 50 ml Inj) 50 ml STK- MED ONCE .ROUTE Last administered on 01/27/17 13:50; Start 01/27/17 at 12:25; Stop 01/27/17 at 12:26; Status DC Lidocaine HCl (Xylocaine 1% Inj (50 ml)) 50 ml STK-MED ONCE .ROUTE ; Start at 12:25; Stop 01/27/17 at 12:26; Status DC Midazolam HCl (Versed Inj) 2 mg STK-MED ONCE .ROUTE ; Start 01/27/17 at 12:44; Stop 01/27/17 at 12:45; Status DC Vancomycin HCl (Vancomycin Inj) 1,000 mg STK-MED ONCE .ROUTE Last administered on 01/27/17 13:45; Start 01/27/17 at 13:07; Stop 01/27/17 at 13:08; Status DC Ketorolac Tromethamine (Toradol Inj) 30 mg STK-MED ONCE .ROUTE ; Start 01/27/17 at 14:47; Stop 01/27/17 at 14:48; Status DC Fentanyl Citrate (fentaNYL INJ) 250 mcg STK-MED ONCE .ROUTE ; Start 01/27/17 at 14:57; Stop 01/27/17 at 14:58; Status DC Hydromorphone HCl (Dilaudid Pf Inj) 2 mg Q4H PRN IV BREAKTHROUGH PAIN 5-10; Start 01/27/17 at 15:00 Ketorolac Tromethamine (Toradol) 10 mg Q8H PO Last administered on 01/29/17 23 :15; Start 01/27/17 at 16:00; Stop 01/30/17 at 15:59 Enoxaparin Sodium (Lovenox Inj) 30 mg Q12H SQ Last administered on 01/30/17 05 :08; Start 01/27/17 at 18:00 Sodium Chloride (NS Flush) 2 ml BID IV FLUSH Last administered on 01/29/17 20: 14; Start 01/27/17 at 21:00 Sodium Chloride (NS Flush) 2 ml UNSCH PRN IV FLUSH FLUSH AFTER USING IV ACCESS ; Start 01/27/17 at 15:15 Miscellaneous Information ALL NURSING DEPARTME... 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 -hypertension; not well controlled-stopped norvasc and started on Procardia; increased the dose to 60 mg daily- f/u and further adjustment as outpatient. -UTI- treated- UC with e-coli. -chronic renal insufficiency; at his baseline- will monitor the renal function -COPD with no exacerbation/ seizure disorder; resumed home meds -anemia- acute on chronic; post-op superimposed on chronic disease anemia- H/H fairly stable- patient is asymptomatic. -DVT prophylaxis with subq Lovenox. Discharge Planning dc to SNF - hopefully soon- when cleared by vascular surgery. see med list. f/u with pcp and vascular surgery. d/w the patient and RN. time spent 35 min. Karen Mahan MD January 30, 2017 08:25
[2017-01-30] MEDS ORDERED: HYDR-3516 PO (08:28)
[2017-01-30] MEDS ORDERED: NIFE30TA8 PO (08:28)
--- NOTE | 2017-01-30 08:29 | HHI.DCPOC ---
Discharge Care Plan Diagnosis: (1) Peripheral vascular disease of extremity Additional Problems gangrene of the foot. Goals to Promote Your Health * To prevent worsening of your condition and complications * To maintain your health at the optimal level Directions to Meet Your Goals Take your medications as prescribed Follow your dietary instruction Follow activity as directed Keep your appointments as scheduled Take your immunizations and boosters as scheduled If your symptoms worsen call your PCP, if no PCP go to Urgent Care Center or Emergency Room Smoking is Dangerous to Your Health. Avoid second hand smoke Call the 24-hour hour crisis hotline for domestic abuse at Karen Mahan MD January 30, 2017 08:29
--- NOTE | 2017-01-30 08:31 | HHI.DS ---
Discharge Summary Admission Date January 24, 2017 at 18:27 Discharge Date: January 30, 2017 Admitting Diagnosis gangrene left foot (1) Gangrene of left foot ICD Code: I96 Diagnosis: Principal Procedures left BKA Brief History - From Admission patient is a 71 y/o male with history of PVD- s/p right BKA and left femoropopliteal bypass, chronic renal insufficiency, COPD, seizure disorder , who was sent to ER from [facility] because of the gangrene of the left foot. he says that it's been going on for a month. the left foot is with some erythema with black discoloration of the left great toe. he says that he had mild to moderate pain to the site. there's no report of fever. CBC/BMP: 01/30/17 0517 01/29/17 0510 Significant Findings Laboratory Tests Test 01/29/17 01/30/17 05:10 05:17 Red Blood Count 2.42 MIL/MM3 (4.50-5.90) Hemoglobin 8.2 GM/DL 8.0 GM/DL (13.0-17.0) (13.0-17.0) Hematocrit 23.6 % 23.2 % (39.0-51.0) (39.0-51.0) Neutrophils (%) (Auto) 80.9 % (16.0-70.0) Lymphocytes (%) (Auto) 8.1 % (9.0-44.0) Monocytes (%) (Auto) 8.4 % (0.0-8.0) Neutrophils # (Auto) 8.7 TH/MM3 (1.8-7.7) Lymphocytes # (Auto) 0.9 TH/MM3 (1.0-4.8) Chloride Level 109 MEQ/L (98-107) Carbon Dioxide Level 19.9 MEQ/L (21.0-32.0) Blood Urea Nitrogen 51 MG/DL (7-18) Creatinine 2.68 MG/DL (0.60-1.30) Estimat Glomerular Filtration 23 ML/MIN (>89) Rate Random Glucose 113 MG/DL (74-106) Imaging Last Impressions Foot X-Ray 01/24/17 1432 Signed Impressions: Service Date/Time: Tuesday, January 24, 2017 14:56 - CONCLUSION: No acute bony findings Eric Lopez MD Chest X-Ray 01/24/17 1432 Signed Impressions: Service Date/Time: Tuesday, January 24, 2017 14:52 - CONCLUSION: No acute disease. Eric Lopez MD PE at Discharge GENERAL: This is a well-nourished, well-developed patient, in no apparent distress. CARDIOVASCULAR: Regular rate and regular rhythm without murmurs, gallops, or rubs. RESPIRATORY: Clear to auscultation. Breath sounds equal bilaterally. No wheezes , rales, or rhonchi. GASTROINTESTINAL: Abdomen soft, non-tender, nondistended. Normal, active bowel sounds MUSCULOSKELETAL:s/p recent left BKA-stump covered with clean dressing- s/p right BKA NEURO: Alert & Oriented x4 to person, place, time, situation. Moves all ext x4 Hospital Course - gangrene of the left foot s/p left BKA- vascular surgery following. -hypertension; not well controlled-stopped norvasc and started on Procardia; increased the dose to 60 mg daily- f/u and further adjustment as outpatient. -UTI- treated- UC with e-coli. -chronic renal insufficiency; at his baseline- will monitor the renal function -COPD with no exacerbation/ seizure disorder; resumed home meds -anemia- acute on chronic; post-op superimposed on chronic disease anemia- H/H fairly stable- patient is asymptomatic. -DVT prophylaxis with subq Lovenox. Pt Condition on Discharge: Good Discharge Disposition: Discharge to SNF Discharge Time: > 30 minutes Discharge Instructions DIET: Follow Instructions for: Heart Healthy Diet Activities you can perform: Regular-No Restrictions Follow up Referrals: PCP Follow[facility] SN[facility] New Medications: Hydrocodone-Acetaminophen (Hydrocodone-Acetaminophen) 5-325 mg Tab 1 TAB PO Q4H PRN pain #20 Ref 0 TAB Nifedipine ER 24 HR (Nifedipine ER 24 HR) 30 Mg Tab 60 MG PO DAILY hypertension Days 30 Ref 0 TAB Continued Medications: Acetaminophen (Mapap) 325 Mg Tab 650 MG PO Q4HR PRN MILD DISCOMFORT Ref 0 TAB Albuterol 18 GM Inh (Ventolin Hfa 18 GM Inh) 90 Mcg/Act Aer 2 PUFF INH Q8HR PRN SOB/WHEEZING #1 Ref 0 INHALER Aspirin (Aspirin) 325 Mg Tab 325 MG PO DAILY #30 Ref 0 TAB Calcitriol (Rocaltrol) 0.5 Mcg Cap 0.5 MCG PO DAILY CHRONIC KIDNEY DISEASE #30 Ref 0 CAP Darbepoetin Gelacio Inj (Aranesp (Albumin Free) Inj) 60 Mcg/0.3 Ml Inj 30 MCG SQ MONTHLY ON THE Anemia Ref 0 INJECTION Donepezil (Donepezil) 10 Mg Tab 10 MG PO HS Dementia #30 Ref 0 TAB Fluticasone Nasal Townsend (Flonase Nasal Townsend) 50 Mcg/Act Townsend 2 SPRAY EACH NARE DAILY Allergies #1 Ref 0 BOTTLE Fluticasone-Vilanterol Inh (Breo Ellipta Inh) 100-25 Mcg/Act Inh 2 PUFF INH DAILY Use daily at the same time. COPD #1 Ref 0 INHALER Labetalol (Labetalol) 100 Mg Tab 50 MG PO BID Blood Pressure Management Ref 0 TAB Loratadine (Loratadine) 10 Mg Tab 10 MG PO DAILY Allergy Management Ref 0 TAB Multiple Vitamins W/ Minerals (Thera-M) 1 Tab 1 TAB PO DAILY Nutritional Supplement Ref 0 TAB Phenytoin Extended (Dilantin) 100 Mg Cap 200 MG PO BID EPILEPSY #180 Ref 0 CAP Polysaccharide Iron Complex (Poly-Iron 150) 150 Mg Cap 150 MG PO TID Nutritional Supplement #60 Ref 0 CAP Polyvinyl Alcohol Opth (Polyvinyl Alcohol Opth) 1.4% Soln 1 DROP EACH EYE DAILY PRN IRRITATION OF FOREIGN BODY #15 ML Sodium Bicarbonate (Sodium Bicarbonate) 650 Mg Tab 650 MG PO BID GERD #60 Ref 0 TAB Discontinued Medications: Amlodipine (Norvasc) 10 Mg Tab 10 MG PO DAILY Blood Pressure Management #30 Ref 0 TAB Karen Mahan MD January 30, 2017 08:31
[2017-01-30] MEDS ORDERED: NIFEdipine 30 MG SUSTAINED RELEASE TAB PO SCH (09:00)
[2017-01-30] MEDS: cefTRIAXone INJ 1,000 MG in SODIUM CHLORIDE 0.9% INJ 100 ML IV SCH (09:47)
--- NOTE | 2017-01-30 10:48 | MP ---
cc: HIMANSHU ESPINOSA DATE OF SURGERY January 27, 2017 PREOPERATIVE DIAGNOSIS Progressive ischemic gangrene left foot. POSTOPERATIVE DIAGNOSIS Progressive ischemic gangrene left foot. PROCEDURE Left below-knee amputation. SURGEON Himanshu Espinosa MD MATCH MARKER ALICIA Giron ANESTHESIA General. DESCRIPTION OF OPERATIVE PROCEDURE With the patient in the supine position, general anesthesia was induced, the left leg prepped with Betadine and draped in a sterile fashion employing a sterile isolation bag secured around the left leg below the knee. 1 gram of vancomycin was administered intravenously and following a protocol time-out, the skin and subcutaneous tissue along the proposed incisional area preemptively infiltrated with 0.5% Marcaine with epinephrine. A circumferential fish mouth shaped incision was performed around the left calf approximately 8 inches below the anterior tibial tubercle. A long posterior flap was fashioned. The incision was deepened through the fascia. Muscle fibers of the anterior and posterior muscular compartments were sharply incised. Periosteum of the tibia was mobilized proximally and the tibia transected with a Gigli saw at 45-degree angle. Fibular periosteum was also mobilized and the fibula transected with a double-action bone cutter. The tibial arteries and veins were ligated in continuity with 2-0 Vicryl and divided. The sciatic nerve was thoroughly infiltrated with 0.5% Marcaine with epinephrine and transected 1 inch proximal to the level of tibial transection. Remaining muscle fibers of the deep and superficial posterior compartments were transected. The wound was irrigated with saline and strict hemostasis achieved. The fascia was reapproximated with continuous 2-0 PDS, the skin reapproximated with jono. A sterile, protective dressing of Telfa, gauze, cotton held in place with a long posterior splint and stretch mesh was applied overall. There were no operative complications. Instrument, needle and sponge count correct x 2. The patient returned to the recovery room in stable condition having tolerated the procedure well. Himanshu Espinosa MD JTS/SSB /4:36 PM /10:36 AM
== END 2017-01-30 11:59 | DRG 240 ==
LOC: NEPC 14:04 → NEDA 18:27 → N04B 20:44
PROVIDERS: ADMIT Internal Medicine; ATTEND Internal Medicine
PROC: 0Y6J0Z1 Detachment at Left Lower Leg, High, Open Approach (ICD-10-PCS; principal; 2017-01-27 13:12)
DX: I73.9 Peripheral vascular disease, unspecified (principal); N39.0 Urinary tract infection, site not specified; J44.9 Chronic obstructive pulmonary disease, unspecified; G40.909 Epilepsy, unspecified, not intractable, without status epilepticus; I12.9 Hypertensive chronic kidney disease with stage 1 through stage 4 chronic kidney disease, or unspecified chronic kidney disease; N18.9 Chronic kidney disease, unspecified; D63.1 Anemia in chronic kidney disease; F17.210 Nicotine dependence, cigarettes, uncomplicated; M19.90 Unspecified osteoarthritis, unspecified site; F10.21 Alcohol dependence, in remission; K21.9 Gastro-esophageal reflux disease without esophagitis; B96.20 Unspecified Escherichia coli [E. coli] as the cause of diseases classified elsewhere; Z86.73 Personal history of transient ischemic attack (TIA), and cerebral infarction without residual deficits; Z89.511 Acquired absence of right leg below knee
CPT/HCPCS: 71010; 73620; 80048; 80053; 81001; 85014; 85018; 85025; 85610; 85730; 87040; 87077; 87086; 87186; 88307; 88311; 93005; 99284; J0696; J1650; J1885; J2250; J2405; J2710; J3010; J3370; J7120

== ENCOUNTER 2017-02-14 07:06 | Day surgery (SDC) | payer MEDICARE, OTHER ==
[~2017-02-14 07:06] MED LIST changes: -ARIC10TA PO; +ASPI325T PO; -CIPR0.3S2 RIGHT EYE; +DONE10TA7 PO; +FLUT1INH INH; +FLUT1SPR5 EACH NARE; +HYDR-3516 PO; -KETO1SOL3 EACH EYE; +LABE100T2 PO; +LORA10TA PO; +MAPA325T PO; +NIFE30TA8 PO; -NU-I150C PO; +NU-IRON PO; +POLY0.052 EACH EYE; -PRED1%O LEFT EYE; -PRED1%O RIGHT EYE; +ROCA0.5C PO; +SODI650T PO; +THERTAB17 PO; +VENTAER INH; -[UNRECOGNIZED DRUG - CODE] SC; +[UNRECOGNIZED DRUG - CODE] SQ
[2017-02-14] MEDS ORDERED: HYDR25TA5 PO (07:29)
[2017-02-14] MEDS ORDERED: ceFAZolin 2 GM PREMIX 50 ML IV SCH (08:00)
[2017-02-14] MEDS ORDERED: NS 1000 ML IV SCH (08:00)
[2017-02-14] MEDS ORDERED: POVIDONE IODINE 5% (ANTISEPSIS KIT) 4 APPLICATIONS EACH NARE SCH (08:00)
[2017-02-14] MEDS ORDERED: MUPIROCIN 2% OINT 1 APPLIC/GM SYR NASAL SCH (08:00)
[2017-02-14] MEDS ORDERED: VANCOMYCIN 1000 MG/NS 250 ML IV SCH ×2 (08:00)
[2017-02-14] MEDS ORDERED: CHLORHEXIDINE GLUCONATE 2 % 1 PACK (2 CLOTHS) TOPICAL SCH (08:00)
--- NOTE | 2017-02-14 08:57 | MA ---
cc: GEORGES JAMES MD DATE: 02/14/2017 PROCEDURE Loop recorder insertion. PERFORMING PHYSICIAN Dr. Georges James PREPROCEDURE DIAGNOSIS Atrial fibrillation of uncertain quantity and burden. DESCRIPTION OF PROCEDURE The patient was brought to the DOC unit in the postabsorptive state. After informed consent was obtained, a [employer] LINQ loop recorder was inserted subcutaneously to the left chest. The patient tolerated the procedure well without any apparent complication. The initial R-wave was 0.41 mV. Tachy-álvaro pause and atrial fibrillation detection was enabled. The serial number was [id number]. MD JACKY Shelton/MAURA /8:51 AM /8:55 AM
== END 2017-02-14 12:06 ==
LOC: HDIC 07:06 → HDOC 07:06
PROVIDERS: ATTEND Nuclear Medicine Nuclear Cardiology
DX: I48.91 Unspecified atrial fibrillation (principal)
CPT/HCPCS: 33282; C1764